=== PATIENT | male | born 1950 | race Caucasian/White ===

== ENCOUNTER → 2023-07-29 | Emergency (ER) | payer OTHER ==
--- OUTSIDE RECORDS SUMMARY | 2023-07-29 11:57 | XMS REPORT | Continuity of Care Document ---
Author Name Unknown Address [address] [facility] [address] [place] [address] [facility] thconnect Address [address] [facility] [address] [place] [address] Care Team Providers Care Mining Manager Name Role Phone Pcp-None Primary Care Physician Unavailab Ingrid Montes Attending Clinician UnavailObie Stephenson Attending Clinician Unavail Zeke Kuo Attending Clinician Unavailable Payers Payer Name Policy Type Policy Number Effective Date Expirati on Date Source Allergies, Adverse Reactions, Alerts Allergy Name Allergy Type Status Severity Reaction(s) Onset Date Inactive Date Treating Clinician Comments Source No Known Drug Allergie s DA Active U 01-06 00:00: 00 MCSETXm Encounters Start Date/Time End Date/Time Encounter Type Admission Type Attending [facility] Facility Care Department Encounter ID Source 2022-04-06 10:10:00 2022-04-06 10:11:00 Outpatient Elective Ingrid PerdomoETXjocelynn MCSETXm [id number] MCSETXm 2022-04-06 10:10:00 2022-04-06 10:10:00 Outpatient Elective Inrgid PerdomoETXjocelynn MCSETXm [id number] MCSETXm 2022-01-06 10:39:00 2022-01-06 17:31:00 Emergency Emergency Obie CollinsXjocelynn MCSETXm [id number] MCSETXm 2022-01-06 10:39:00 2022-01-06 10:39:00 Emergency Emergency Zeke Chu MCSETXm MCSETXm [id number] MCSETXm Results Test Description Test Time Test Comments Results Result Co mments Source PREVIOUS SPECIMEN HEMOLYZED/NOTIFIED ER@[id number] Blood Count Auto Diff 2022-01-06 12:15:00* Test Item Value Reference Range Interpretation Comme nts White Blood Count (test code = WBCT) 8.2 x10 3/uL 4.8-10.8 N Red Blood Count (test code = RBC) 5.09 x10 6/uL 4.60-6.20 N Hemoglobin (test code = HGBT) 17.6 g/dL 14.0-18.0 N Hematocrit (test code = HCTT) 52.9 % 38.0-52.0 H Mean Corpuscular Volume (favian t code = MCV) 103.9 fL 80.0-95.0 H Mean Corpuscular Hemoglobin (test code = MCH) 34.6 pg 26.0-32.0 H Mean Corpuscular HGB Conc (t est code = MCHC) 33.3 g/dL 31.0-36.0 N Red Cell Distribution Width (test code = RDW) 12.5 % 11.5-14.5 N Platelet Count (test code = PLTT) 148 x10 3/uL 140-440 N Mean Platelet Volume (test c ode = MPV) 10.5 fL 7.5-11.2 N Immature Granulocytes % (Aut o) (test code = IMMGRAN%) 0.2 % Neutrophils % (Auto) (test c ode = NE%) 89.0 % Lymphocytes % (Auto) (test c ode = LY%) 3.6 % Monocytes % (Auto) (test cod e = MO%) 3.8 % Eosinophils % (Auto) (test c ode = EO%) 3.3 % Basophils % (Auto) (test cod e = BA%) 0.1 % Immature Granulocytes # (Aut o) (test code = IMMGRAN#) 0.02 x10 3/uL Neutrophils # (Auto) (test c ode = NE#) 7.3 x10 3/uL 2.7-7.3 N Lymphocytes # (Auto) (test c ode = LY#) 0.3 x10 3/uL 0.8-3.5 L Monocytes # (Auto) (test cod e = MO#) 0.3 x10 3/uL 0.3-0.9 N Eosinophils # (Auto) (test c ode = EO#) 0.3 x10 3/uL 0.0-0.3 N Basophils # (Auto) (test cod e = BA#) 0.0 x10 3/uL 0.0-0.1 N nRBC Abs (test code = NRBCA) 0 10>3/mcL nRBC Pct (test code = NRBCP) 0 % Comprehensive Metabolic [id number] 12:15:00* Test Item Value Reference Range Interpretation Comme nts SODIUM (test code = NA) 138 mmol/L 136-145 N Potassium,K (test code = K) 4.3 mmol/L 3.5-5.1 N Chloride (test code = CL) 103 mmol/L 98-107 N Carbon Dioxide (test code = CO2) 30 mmol/L 21-32 N Anion Gap (test code = GAP) 5 mmol/L 7-16 L Blood Urea Nitrogen (test co de = BUN) 16 mg/dL 7-18 N Creatinine (test code = CREATT) 0.8 mg/dL 0.7-1.3 N Creatinine Clr Calc Pharmacy (test code = CRCLPHA) 76.89 mL/min Estimated GFR ( Ameri ca (test code = EGFRAA) > 60 mL/min/1.73m2 Estimated GFR (Non Afr Ameri ca (test code = EGFRNAA) > 60 mL/min/1.73m2 BUN/Creatinine Ratio (test c ode = BCRATIO) 20 Glucose (test code = GLU) 99 mg/dL 74-106 N Calcium (test code = CA) 9.0 mg/dL 8.5-10.1 N Bilirubin,Total (test code = BILIT) 1.4 mg/dL 0.2-1.0 H Aspartate Amino Transferase (test code = AST) 15 IU/L 10-34 N Alanine Aminotransferase (te st code = ALT) 18 IU/L 12-78 N Total Protein (test code = TP) 6.7 g/dL 6.4-8.2 N Albumin Level (test code = ALB) 4.0 g/dL 3.4-5.0 N Globulin (test code = GLOB) 3 Albumin/Globulin Ratio (test code = AGRATIO) 1.3 ratio 1.2-3.0 N Alkaline Phosphatase (test c ode = ALP) 107 IU/L 45-122 N [id number] 12:15:00* Test Item Value Reference Range Interpretation Comme nts Lipase (test code = LIP) 98 IU/L 73-393 N Troponin I High [id number] 12:15:00* Test Item Value Reference Range Interpretation Comme nts Troponin I High Sensitivity (test code = TROPHS) 4.5 ng/L 0-58.9 N [facility] [address] [place], [place] [id number] Patient Name: Franky Ward Medical Record#: [id number] Address: [address] [place] [address] City/State/Zip: [place] [address]: Ingrid Perdomo MD Insurance: Medicare A B /Age/Sex: 1950/71/M [facility] Admit/Reg Date: 04/06/[address]: Jocelynn Corrales Location: [facility]/ PCP: Pcp-Md RUSS Pineda Date of Service: 03/18 06/07 Order (s): BD bone densitometry axial CPT Code: 94829 Report Number: [id number] Reason forExam: [id number] EXAM: DEXA scan with FRAX: INDICATION: 71-year-old male for bone mineral assessment/fracture probability assessment. COMPARISON: None TECHNIQUE: A DEXA study was performed utilizing a Dog[employer] QDR series scanner. The study included assessment of the patient's bone mineral density within the lumbar spine, right hip, and left hip. The area of the lowest bone mineral density was then compared to the mean bone mineral density average of a young adult. The subsequent classification of normal, osteopenia, or osteoporosis was then based on the World Health Organization (WHO) classification system (T-score). A FRAX algorithm was also developed by the WHO. This calculates an osteopenic patient's 10 year fracture probability as a percent risk. The fracture tool incorporates the patient's bone mineral density with 11 potential clinical risk factors for osteoporosis. A 10 year fracture risk of greaterthan 20% for an osteoporotic fracture or greater than 3% for a hip fracture, is a indication for intervention in post menopausal women and men over the age of 50. FINDINGS: Based on the lowest bone mineral density located within the right femur , the patient hasa WHO classification of osteoporosis. The patient's 10 year fracture risk for an osteoporotic fracture is 13.3 % and for a hip fracture is 7.6 %. IMPRESSION: 1. WHO classification: Osteoporosis 2. Fracture risk:High Please see the computer-generated report Dictated By: Nima Nelson MD 04/06/22 1143 Signed By: Nima Nelson MD 04/06/22 1151 TD/TT: 04/06/22 1143 Tech: [id number] cc: MALENA; PCPNO* Ingrid Perdomo MD; PcpMd Palma MDX [facility] [address] [address] Patient Name: Franky Ward Medical Record#: [id number] Address: [address] [place] [address] Account#: [id number] City/State/Zip: [place] [address]: Zeke Chu MD Insurance: Medicare A B /Age/Sex: 1950/71/M [facility] Admit/Reg Date: 01/06/[address]: Heri chairez NP Location: [facility]/ PCP: PcpMd RUSS Waldrop Date of Service: 01/06/22 Order (s): XR abdomen 2V CPT Code: 59710 Report Number: [id number] Reason for Exam: abd pain, vomiting X-ray abdomen 2 views HISTORY: Abdominal pain, emesis COMPARISON: None available TECHNIQUE: Supine and upright views provided. FINDINGS: Included lung bases are clear. No free air identified underlying the hemidiaphragms. Distended stomach noted with air-fluid level. No evidence of bowel obstruction. No mass effect. Punctate calcification is seen projecting over the right kidney. Psoas margins are profiled. Scoliotic and degenerative changes of the spine identified. IMPRESSION: 1. Distended stomach with air-fluid level; no bowel obstruction. Correlate clinically to exclude any symptoms of gastric outlet obstruction. 2. Questionable punctate right nephrolithiasis versus overlying ca lcification. Dictated By: Cosme Buchanan MD 01/06/221433 Signed By: Cosme Buchanan MD 01/06/22 1442 TD/TT: 01/06/22 1434 Tech: [facility] cc: [id number]; PCPNO* Heri Montemayor, HOGSHEAD WEIGHER; Pcp-Md RUSS Pineda Notes Date/Time Note Provider Source 2022-01-06 11:11:00 [id number]:11:[address] [address] Emergency Department Document Signed Patient: Franky Ward Medical Record#: [id number] : 1950 Acct:[id number] Age/Sex: 71 / M Admit/Reg Date: 01/06/22 Loc: [facility] Room: Report Number: [id number]: Obie Collins DO <Obie Collins - Last Filed: 01/06/22 17:24> Abdominal Pain HPI - General Chief Complaint: Abdominal Pain Stated Complaint: abd pain - vomiting Primary Care Provider: Pcp-Md Miriam - History of Present Illness HPI narrative: I saw and evaluated the patient. I agree with the findings and plan of care as documented in the HOGSHEAD WEIGHER's note. The patient presented with nausea and vomiting that began today. On physical exam the patient is a regular rate and rhythm without murmur, lungs are clear to auscultation bilaterally. Patient's neurological status is at baseline. Patient symptoms have improved substantially. - Related Data Previous Rx's Medication Instructions Recorded famotidine 20 mg tablet 20 mg PO BID #14 tabs 01/06/22 ondansetron 4 mg disintegrating 4 mg PO Q8H PRN Nausea And 01/06/22 tablet Vomiting #9 tabs Allergies Allergy/AdvReac Type Severity Reaction Status Date / Time No Known Drug Allergies Allergy Verified 01/06/22 11:09 Review of Systems ROS: Constitutional: [No fevers, chills, sweats, weight loss] Eye: [No visual problems] ENMT: [No ear pain, nasal congestion, sore throat] Respiratory: [No shortness of breath, cough] Cardiovascular: [No Chest pain, palpitations, syncope, swelling in legs, dyspnea on exertion] Gastrointestinal: [Positive nausea vomiting denies diarrhea, abdominal pain, no difficulty swallowing] Genitourinary: [No hematuria, no dysuria, no hesitancy, no frequency, no incontinence] Musculoskeletal: [No back pain, neck pain, joint pain, muscle pain, decreased range of motion] Integumentary: [No rash, pruritus, abrasions, no skin ulcers] Neurologic: [No focal weakness, no paresthesia, no headaches, numbness or tingling, no seizures or tremors] Psychiatric: [Normal memory, normal mood] All other systems reviewed are negative or normal. Physical Exam Physical Exam: CONSTITUTIONAL: _well appearing in no acute distress SKIN: _Warm, dry, and intact without rash EYES: _extraocular movements are grossly intact, clear conjunctiva HENT: _Normocephalic, atraumatic, moist mucus membranes NECK: _no obvious swelling, normal range of motion PULMONARY: _normal chest rise and fall, no respiratory distress or stridor CARDIOVASCULAR: _regular rate, distal extremities are warm and well perfused GASTROINTESTINAL: _nondistended, non-tender GENITOURINARY: _deferred NEUROLOGIC: _normal speech, moves all extremities MUSCULOSKELETAL: _no gross deformities, atraumatic PSYCHIATRIC: _normal mood and affect Results/Orders - Results and Orders Result diagrams: 01/06/22 12:15 01/06/22 12:15 ED Provider EKG Interpretation: EKG interpreted by me. Normal sinus rhythm with rate of 67. OK intervals appear to be within normal limits. QRS intervals appear to be within normal limits. There are no ST segment changes. There are no T wave inversions. ED Provider Radiology Interpretation: Abdominal x-ray interpreted by me demonstrates air-fluid levels in the stomach. <Heri Montemayor - Last Filed: 01/06/22 17:29> Abdominal Pain HPI - General Nursing note reviewed: Yes Source: patient Mode of arrival: ambulatory Limitations: no limitations Primary Care Provider: Pcp-None,Md - History of Present Illness HPI narrative: Patient reports epigastric abdominal pain and 1 episode of vomiting at 03:00 today. He states I vomited up bile. No history of cholecystitis. Patient states he ate a few bites of some barbecue yesterday that t asted bad. Patient states he has a cardiac history with an angiogram in the past. After he signed in emergency department, he states he had a sudden onset of chest/epigastric pain w tereseh feels like it did when I had an angiogram." EKG and labs ordered. Review of Systems ROS: As noted in HPI or below. Constitutional: No fevers, chills Eye: No visual problems ENMT: No ear pain, no nasal congestion, no sore throat Neck: No acute neck injury. Respiratory: No cough. No shortness of breath. Cardiovascular: As in HPI. No palpitations or syncope. Gastrointestinal: As in HPI. Genitourinary: No hematuria, no dysuria, no incontinence Back: No acute back injury. Musculoskeletal: No injury, no joint pain, muscle pain, decreased range of motion. Integumentary: No rash, pruritus, abrasions, no skin ulcers Neurologic: No weakness, no headache. No seizures or tremors. Psychiatric: Normal memory, normal mood. Physical Exam Triage Vital Signs: Temperature 36.9 C 01/06/22 11:00 Temperature Source Oral 01/06/22 11:00 Pulse Rate 72 01/06/22 11:00 Respiratory Rate 20 01/06/22 11:00 Blood Pressure 172/72 H 01/06/22 11:00 Blood Pressure Mean 105 01/06/22 11:00 O2 Sat by Pulse Oximetry 100 01/06/22 11:00 Oxygen Delivery Method 01/06/22 11:00 Pain Intensity 6 01/06/22 11:00 Physical Exam: General: [Well groomed. No acute distress.] BMI [ ]. Eye: [EOMI, conjunctiva normal. No periorbital swelling or injury noted.] HENT: [Normocephalic, normal hearing.] [No injury or swelling noted.] Neck: [No tracheal deviation. No stridor. Range of motion normal.] Lungs: [No respiratory distress.] [Clear to auscultation throughout all lung wiggins. No wheezes, no rales, no rhonchi.] [O2 sat on room air is _%.] [Interpretation: Normal.] CV: Heart rate 67. [Regular rhythm, no murmurs.] Abdomen: Soft, epigastric tenderness. Musculoskeletal: [No injury noted.] [Normal range of motion and strength to all extremities.] [No tenderness or swelling. ] Back: [Normal range of motion.] Skin: [Warm, dry, normal for skin coloration. No ecchymosis, no rashes or lesions.] Neurologic: [Alert and oriented X4, no motor deficit, no sensory deficit.] [Normal gait.] Psychiatric: [Cooperative, appropriate mood, normal affect. ] Results/Orders - Results and Orders Result diagrams: 01/06/22 12:15 01/06/22 12:15 Lab Testing Results 01/06/22 12:15: WBC 8.2, RBC 5.09, Hgb 17.6, Hct 52.9 H, MCV 103.9 H, MCH 34.6 H, MCHC 33.3, RDW 12.5, Plt Count 148, MPV 10.5, Immature Gran % (Auto) 0.2, Neut % (Auto) 89.0, Lymph % (Auto) 3.6, Mcnairy % (Auto) 3.8, Eos % (Auto) 3.3, Baso % (Auto) 0.1, Neut # (Auto) 7.3, Lymph # (Auto) 0.3 L, Mcnairy # (Auto) 0.3, Eos # (Auto) 0.3, Baso # (Auto) 0.0, Immature Gran # (Auto) 0.02, Absolute Nucleated RBC 0, Nucleated RBC % (auto) 0 01/06/22 12:15: Sodium 138, Potassium 4.3, Chloride 103, Carbon Dioxide 30, Anion Gap 5 L, BUN 16, Creatinine 0.8, Estimated Creat Clear 76.89, Est GFR ( Amer) > 60, Est GFR (Non-Af Amer) > 60, BUN/Creatinine Ratio 20, Glucose 99, Calcium 9.0, Total Bilirubin 1.4 H, AST 15, ALT 18, Alkaline Phosphatase 107, Total Protein 6.7, Albumin 4.0, Globulin 3, Albumin/Globulin Ratio 1.3, Lipase 98 01/06/22 12:15: Troponin I High Sens 4.5 01/06/22 15:04: Troponin I High Sens Cancelled 01/06/22 16:41: Troponin I High Sens 4.0 Medications Ordered: Discontinued Medications Al Hydrox/Mg Hydrox/Simethicone (Aluminum/Magnesium/Simeth 30 Ml Udl) 30 ml PO STAT STA Stop: 01/06/22 11:11 Last Admin: 01/06/22 11:50 Dose: 30 ml Documented By: MARYCRUZ Famotidine (Famotidine 20 Mg Tablet) 20 mg PO ONCE ONE Stop: 01/06/22 11:11 Last Admin: 01/06/22 11:50 Dose: 20 mg Documented By: MARYCRUZ Lidocaine HCl (Lidocaine 2% Visc Soln 15 Ml Udl) 15 ml PO STAT STA Stop: 01/06/22 11:12 Last Admin: 01/06/22 11:50 Dose: 15 ml Documented By: MARYCRUZ Ondansetron HCl (Ondansetron 4 Mg/2 Ml Inj) 4 mg IV ONCE ONE Stop: 01/06/22 13:43 Last Admin: 01/06/22 14:47 Dose: 4 mg Documented By: MARYCRUZ EKG Orders: EKG Orders 01/06/22 11:09 EKG ED Electrocardiogram Stat ED Provider EKG Interpretation: EKG was done at 11:04. Heart rate 67. Sinus rhythm. No ectopy. No significant acute ST abnormalities. This EKG was also interpreted by Dr. Chu, ED attending Radiology Orders: Radiology Orders 01/06/22 13:44 XR abdomen 2V Stat MDM/COURSE Vital Signs Temperature 36.9 C 01/06/22 11:00 Pulse Rate 72 01/06/22 11:00 Respiratory Rate 20 01/06/22 11:00 Blood Pressure 172/72 H 01/06/22 11:00 O2 Sat by Pulse Oximetry 100 01/06/22 11:00 Temperature 36.9 C 01/06/22 11:00 Pulse Rate 72 01/06/22 11:00 Respiratory Rate 20 01/06/22 11:00 Blood Pressure 172/72 H 01/06/22 11:00 O2 Sat by Pulse Oximetry 100 01/06/22 11:00 Clinical Course: 01/06/22 13:51 Patient reports his epigastric pain has improved after the GI cocktail in the famotidine. He will be given Zofran 4 mg IV to help with the nausea vomiting. Two view x-ray of the abdomen will be obtained. Based on lab work and presentation, this appears to be more of a food poisoning versus gastroenteritis. 01/06/22 16:13 Awaiting repeat troponin results. I called lab, and they stated that the specimen was hemolyzed, and that they call the main emergency department to let them know for redraw. None of this was communicated to the nurse working with the patient. Patient will be redrawn. - [facility] Medical Decision Making Narrative: 01/06/22 17:20 Differential diagnoses include: Esophagitis, gastroenteritis, food poisoning, atypical chest pain, mi. I reviewed and agree with the nurse's notes. Vital signs reviewed. I personally visualized radiological images. Distended stomach with air-fluid level without bowel obstruction. Labs reviewed. No leukocytosis. Hematocrit 52.9, negative initial and 4 hour troponin. Bilirubin 1.4, otherwise no significant findings on complete metabolic panel. This patient was co-managed with and Dr. Collins, ED attendings. Patient states he is feeling much better after receiving medications. The results of pertinent diagnostic studies and exam findings were discussed with the patient and/orfamily. The patients provisional diagnosis and plan of care were discussed. The patient and/or present family expressed understanding of the diagnosis and plan. Written instructions and appropriate follow-up information provided. The risks of medications administered and/or prescribed were discussed with the patient and/or family present. The patient understands their need and responsibility to obtain additional follow-up as instructed. Discharge Plan - Discharge Clinical Impression: Gastroenteritis Disposition: Home or Self-Care Condition: Good Instructions: ED Gastroenteritis Vs Food Poison Care Plan Goals: Return to the emergency department for worsening pain and nausea/vomiting. Prescriptions: New famotidine 20 mg tablet 20 mg PO BID Qty: 14 RF: 0 Transmission Status: Received by [facility] #[id number] ondansetron 4 mg tablet,disintegrating 4 mg PO Q8H PRN (Reason: Nausea And Vomiting) Qty: 9 RF: 0 Transmission Status: Received by [facility] #[id number] Referrals: Pcp-Miriam,MD Russ [Primary Care Provider] - Print Language: Salvadorean Dictated By: Heri Montemayor NP Signed By: Heri Montemayor NP 01/06/22 5110 Zeke Chu MD 01/08/22 0316 Obie Collins DO 01/07/22 0316 DD/ 1111 TD/TT: 01/06/22 1111 Towel Sorter: [id number] cc: PCPNO* Pcp-None,Md MD CUETO Physician [id number] MontemayorWfizh[id number]:11:00 REBECAAVAvailable for patient [id number]:18:16 [facility]
[2023-07-29 13:21] LABS: Absolute Basophils 0.1 K/uL (0-0.5); Absolute Eosinophils 1.3 K/uL (0-0.5); Absolute Lymphocytes (CBC) 1.5 K/uL (0.7-4.9); Absolute Monocytes 0.9 K/uL (0.1-1.3); Absolute Neutrophil 5.5 K/uL (1.8-8.0); Basophils % 0.6 % (0-1.3); Eosinophils % 14.2 % (0-4.4); Lymphocytes % 16.3 % (15.3-44.8); MCV 99.7 fL (80-100); MPV 9.1 fL (7.6-11.3); Monocytes % 9.3 % (3.3-12.3); Neutrophils % 59.6 % (41.7-73.7); Platelets 195 thou/uL (152-406); RBC Red Blood Cell Count 4.71 M/uL (4.33-5.43); Red Cell Distribution Width 13.5 % (12.1-15.2)
[2023-07-29 15:07] LABS: ALT/SGPT 23 U/L (16-61); AST/SGOT 17 U/L (15-37); Albumin 3.9 g/dL (3.4-5.0); Albumin/Globulin Ratio 1.6 (1.1-1.8); Alkaline Phosphatase 107 U/L (45-117); Anion Gap 4.9 mEq/L (5.0-15.0); BUN Blood Urea Nitrogen 16 mg/dL (7-18); Bicarbonate 30 mEq/L (21-32); Bilirubin Total 0.4 mg/dL (0.2-1.0); Globulin 2.5 g/dL (2.3-3.5); Glomerular Filtration Rate 67 ml/min (=/>90); Glucose Level 98 mg/dL (74-106); Potassium 3.9 mEq/L (3.5-5.1); Protein, Total 6.4 g/dL (6.4-8.2); Sodium Level 139 mEq/L (136-145)
[2023-07-29 15:20] LABS: C-Reactive Protein < 2.90 mg/L (<3.00)
--- NOTE | 2023-07-29 15:39 | EDPHYS ---
Physician Documentation [facility] Name: Alcides Cruz Age: 72 yrs Sex: Male : 1950 Arrival Date: 07/29/2023 Time: 11:51 Bed 9 Private MD: Angel Richards ED Physician Gomez Huynh HPI: 07/28 17:32 This 72 yrs old Male presents to ER via Ambulatory with complaints of Rash, Hand rt Swelling, arm swelling. 17:32 Patient presents to the ED with whole body rash. Reports of blistering. Patient has had rt this for many months, reports that he has seen a arts education teacher a few times and was tried antibiotics, topical antifungals, topical steroids. States that when he had this before, was improved with oral steroids. States that he has another appoint with dermatology in August. Denies fever, chills, acute complaints, symptoms are moderate in severity, no other aggravating or elevating factors.. Historical: - Allergies: 12:46 NKDA; iw - PMHx: 12:46 Arthritis; CAD; GERD; Hypertension; Myocardial infarction; TURP; iw - Immunization history:: Adult Immunizations unknown. - Social history:: Smoking status: Patient reports the use of cigarette tobacco products, smokes one pack cigarettes per day. - Family history:: not pertinent. ROS: 17:32 Constitutional: Negative for fever, chills, and weight loss, Cardiovascular: Negative rt for chest pain, palpitations, and edema, Respiratory: Negative for shortness of breath, cough, wheezing, and pleuritic chest pain, Abdomen/GI: Negative for abdominal pain, nausea, vomiting, diarrhea, and constipation, Neuro: Negative for headache, weakness, numbness, tingling, and seizure, 17:32 Skin: Positive for Rash, blistering, Exam: 17:32 Constitutional: This is a well developed, well nourished patient who is awake, alert, rt and in no acute distress. Head/Face: Normocephalic, atraumatic. Chest/axilla: Normal chest wall appearance and motion. Nontender with no deformity. No lesions are appreciated. Cardiovascular: Regular rate and rhythm with a normal S1 and S2. No gallops, murmurs, or rubs. Normal PMI, no JVD. No pulse deficits. Respiratory: Lungs have equal breath sounds bilaterally, clear to auscultation and percussion. No rales, rhonchi or wheezes noted. No increased work of breathing, no retractions or nasal flaring. Abdomen/GI: Soft, non-tender, with normal bowel sounds. No distension or tympany. No guarding or rebound. No evidence of tenderness throughout. 17:32 Skin: Nonblanchable, erythematous rash throughout most of the body, there are some blistering noted.. Vital Signs: 12:44 BP 169 / 77; Pulse 61; Resp 16; Temp 98.2; Pulse Ox 98% on R/A; Weight 83.91 kg; Height iw 5 ft. 7 in. ; 15:30 BP 158 / 80; Pulse 65; Resp 15; Pulse Ox 97% ; ko1 12:44 Body Mass Index 28.97 (83.91 kg, 170.18 cm) iw MDM: 12:46 Patient medically screened. rt 17:32 Differential diagnosis: Infection, bullous pemphigoid, nonspecific rash. Data reviewed: rt vital signs, nurses notes, lab test result(s). Consideration of Admission/Observation Escalation of care including admission/observation considered. 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 Will start patient on steroids. Labs including CRP are negative. At this time, I see no indications for admission at the hospital, patient is stable to follow-up with his arts education teacher as an outpatient. I considered the following discharge prescriptions or medication management in the emergency department Medications were administered in the Emergency Department. See MAR. Care significantly affected by the following chronic conditions: Hypertension. Counseling: I had a detailed discussion with the patient and/or guardian regarding the historical points, exam findings, and any diagnostic results supporting the discharge/admit diagnosis, lab results, the need for outpatient follow up. 07/28 12:59 Order name: CBC with Diff; Complete Time: 15:28 rt 07/28 12:59 Order name: CMP; Complete Time: 15:28 rt 07/28 12:59 Order name: CRP; Complete Time: 15:28 rt 07/28 13:25 Order name: Labs - recollect needed: green top; Complete Time: 14:40 bc6 Administered Medications: No medications were administered Disposition Summary: 07/29/23 15:39 Discharge Ordered Notes: Location: Home rt Problem: an ongoing problem rt Symptoms: are unchanged rt Condition: Stable rt Diagnosis - Rash and other nonspecific skin eruption rt Followup: rt - With: Private Physician - When: 5 - 6 days - Reason: Discharge Instructions: - Discharge Summary Sheet rt - Rash, Adult rt Forms: - Medication Reconciliation Form rt - Thank You Letter rt - Antibiotic Education rt - Prescription Opioid Use rt - Patient Portal Instructions rt - Leadership Thank You Letter rt Prescriptions: - Clindamycin HCl 300 mg Oral Capsule - take 1 capsule ORAL route every 6 hours for 10 days; 40 capsule; Refills: 0, rt Product Selection Permitted - Tramadol 50 mg Oral tablet - take 1 tablet ORAL route every 8 hours as needed; 18 tablet; Refills: 0, rt Product Selection Permitted - Prednisone 20 mg Oral Tablet - take 2 tablets ORAL route once daily for 5 days; 10 tablet; Refills: 0, Product rt Selection Permitted Signatures: Dispatcher [employer] Zo Tran RN RN iw Akilah Espinoza RN RN ko1 Gomez Huynh MD MD rt Cindi Giordano 6
--- NOTE | 2023-07-29 15:39 | ER ---
Nurse's Notes [facility] Name: Alcides Cruz Age: 72 yrs Sex: Male : 1950 Arrival Date: 07/29/2023 Time: 11:51 Bed 9 Private MD: Angel Richards Diagnosis: Rash and other nonspecific skin eruption Presentation: 07/28 12:44 Chief complaint: Patient states: rash, redness swelling to left arm, chest and back for iw months, it got worse last night, has been seen by dermatologists but nothing helps. Coronavirus screen: At this time, the client does not indicate any symptoms associated with coronavirus-19. Ebola Screen: No symptoms or risks identified at this time. Initial Sepsis Screen: Does the patient meet any 2 criteria? No. Patient's initial sepsis screen is negative. Does the patient have a suspected source of infection? No. Patient's initial sepsis screen is negative. Risk Assessment: Do you want to hurt yourself or someone else? Patient reports no desire to harm self or others. Onset of symptoms. 12:44 Method Of Arrival: Ambulatory iw 12:44 Acuity: ARTEMIO 3 iw Triage Assessment: 13:00 General: Appears in no apparent distress. Behavior is calm, cooperative. Pain: iw Complains of pain in left arm. Neuro: Level of Consciousness is awake, alert, obeys commands, Oriented to person, place, time, situation. Derm: Rash noted that is red, on back, chest and left arm. Historical: - Allergies: 12:46 NKDA; iw - PMHx: 12:46 Arthritis; CAD; GERD; Hypertension; Myocardial infarction; TURP; iw - Immunization history:: Adult Immunizations unknown. - Social history:: Smoking status: Patient reports the use of cigarette tobacco products, smokes one pack cigarettes per day. - Family history:: not pertinent. Screenin:41 [facility] ED Fall Risk Assessment (Adult) History of falling in the last 3 months, ko1 including since admission No falls in past 3 months (0 pts) Confusion or Disorientation No (0 pts) Intoxicated or Sedated No (0 pts) Impaired Gait No (0 pts) Mobility Assist Device Used No (0 pt) Altered Elimination No (0 pt) Score/Fall Risk Level 0 - 2 = Low Risk Oriented to surroundings, Maintained a safe environment, Educated pt \T\ family on fall prevention, incl call for assistance when getting out of bed, Assessed \T\ reinforced patient's understanding of fall precautions, Provided non-skid footwear, Hourly rounding (assess needs \T\ fall precautionary measures) done, Used ambulatory aids as needed (educated on \T\ assisted with), Used gait belt as appropriate. Abuse screen: Denies threats or abuse. Denies injuries from another. Nutritional screening: No deficits noted. Tuberculosis screening: No symptoms or risk factors identified. Assessment: 14:43 General: Appears in no apparent distress. Behavior is calm, cooperative, appropriate ko1 for age. Pain: Denies pain. Neuro: No deficits noted. Cardiovascular: No deficits noted. Respiratory: No deficits noted. GI: No deficits noted. : No deficits noted. EENT: No deficits noted. Derm: Rash noted that is macular, itchy, red, raised, on chest and back and left arm. Musculoskeletal: No deficits noted. Vital Signs: 12:44 BP 169 / 77; Pulse 61; Resp 16; Temp 98.2; Pulse Ox 98% on R/A; Weight 83.91 kg; Height iw 5 ft. 7 in. ; 15:30 BP 158 / 80; Pulse 65; Resp 15; Pulse Ox 97% ; ko1 12:44 Body Mass Index 28.97 (83.91 kg, 170.18 cm) iw ED Course: 11:57 Patient arrived in ED. mr 11:57 Angel Richards MD is Private Physician. mr 12:04 Gomez Huynh MD is Attending Physician. rt 12:45 Triage completed. iw 13:16 Initial lab(s) drawn, by me, sent to lab. Inserted saline lock: 20 gauge in right iw antecubital area, using aseptic technique. Blood collected. 13:16 CRP Sent. iw 13:16 CMP Sent. iw 13:16 CBC with Diff Sent. iw 13:36 Arm band placed on. iw 14:35 Akilah Espinoza, OZZY is Primary Nurse. ko1 14:41 No provider procedures requiring assistance completed. Lab(s) recollected, by me, sent ko1 to lab. 14:41 Patient has correct armband on for positive identification. Bed in low position. Call ko1 light in reach. Side rails up X 1. Pulse ox on. NIBP on. Door closed. Noise minimized. Warm blanket given. Pillow given. 15:30 Provided Education on: labs. ko1 15:48 IV discontinued, intact, bleeding controlled, No redness/swelling at site. Pressure ko1 dressing applied. Administered Medications: No medications were administered Medication: 14:41 VIS not applicable for this client. ko1 Outcome: 15:39 Discharge ordered by . rt 15:48 Discharged to home ambulatory, ko1 15:48 Condition: stable 15:48 Discharge instructions given to patient, Instructed on discharge instructions, follow up and referral plans. medication usage, Demonstrated understanding of instructions, follow-up care, medications, Prescriptions given X 3, 15:52 Patient left the ED. ko1 Signatures: Inez Leach, Reg Reg mr Zo Morel, RN RN iw Akilah Espinoza, OZZY RN ko1 Gomez Huynh MD MD rt
[2023-07-29 16:43] VITALS: BP 158/80; TEMP 98.2; O2SAT 97
== END ==
LOC: ER 11:51
DX: R21 Rash and other nonspecific skin eruption (principal); F17.210 Nicotine dependence, cigarettes, uncomplicated
CPT/HCPCS: 36415; 80053; 85025; 86140; 99284

== ENCOUNTER 2025-02-11 01:36 | Emergency (ER) | payer OTHER ==
--- OUTSIDE RECORDS SUMMARY | 2025-02-11 01:41 | XMS REPORT | Continuity of Care Document ---
Author Name Unknown Address [address] [facility] [address] [place] [address] [facility] Address [address] [facility] [address] [place] [address] Care Team Providers Care Research And Development Director Name Role Phone Pcp-None Primary Care Physician Unavailab MIGUEL Lee Attending Clinician Unavailable Sebastian Son MD Attending Clinician [phone] SEBASTIAN SON Attending Clinician Unavailabl e [facility] Attending Clinician Unavailable Doctor Unassigned, [place] Attending Clinician U Eugenio Batres RPH Attending Clinician [phone]- [phone] Winifred August MD Attending Clinician [phone] KENDRA MAYS Attending Clinician Unavailab KENDRA Chopra Attending Clinician Unavailab Kendra Chopra DO Attending Clinician + [phone] Vin Quintanilla PA-C Attending Clinician [phone] Sebastian Son MD Attending Clinician [phone]- [phone] Vin Quintanilla PA-C Attending Clinician [phone] VIN QUINTANILLA Attending Clinician Unavailable Carin Bates MD Attending Clinician [phone] Marck Jordan MD Attending Clinician [phone] [facility] Attending Clinician Unavailable Ingrid Perdomo Attending Clinician UnavailObie Stephenson Attending Clinician Unavail Zeke Kuo Attending Clinician Unavailable Payers Payer Name Policy Type Policy Number Effective Date Expirati on Date Source Problems Condition Name Condition Details Condition Category Status Onset Date Resolution Date Last Treatment Date Treating Clinician Comments Source Post-op pain Post-op pain Disease Active 2014-05 00:00: 00 [facility] Allergies, Adverse Reactions, Alerts Allergy Name Allergy Type Status Severity Reaction(s) Onset Date Inactive Date Treating Clinician Comments Source DOXYCYCL INE DRUG INGREDI Active N/V 08-04 00:00: 00 [facility] Doxycycl ine Propensi ty to adverse reaction s Active Nausea and/or Vomiting 08-04 00:00: 00 [facility] No Known Drug Allergie s DA Active U 01-06 00:00: 00 [facility] Morphine Propensi ty to adverse reaction s to drug Active Other - See comments 2014-05 00:00: 00 Pt states he does ok if given Morphine slowly. Had a reaction in the past when Morphine was given "too fast." States he was jerking/t witching. [facility] MORPHINE DRUG INGREDI Active Low Other-Cmnt 2014-05 00:00: 00 [facility] Social History Social Habit Start Date Stop Date Quantity Comments Source History of tobacco use Cigarette Smoker [facility] Alcoholic beverage intake 2024-02-25 00:00:00 2024-02-25 00:00:00 6 /d [facility] Tobacco use and exposure 2023-10-05 00:00:00 2023-10-05 00:00:00 Smokeless tobacco non-user [facility] Alcohol intake 2023-08-05 00:00:00 2023-08-05 00:00:00 6 /d [facility] History of Social function 2023-08-05 00:00:00 2023-08-05 00:00:[address] [facility] Cigarettes smoked current (pack per day) - Reported 2015-04-02 00:00:00 2015-04-02 00:00:[address] [facility] Sex assigned at 1950 00:00:00 1950 00:00:[address] [facility] Smoking Status Start Date Stop Date Source Smokes tobacco daily 2023-10-05 00:00:[address] [facility] Medications Ordered Medication Name Filled Medication Name Start Date Stop Date Current Medication? Ordering Clinician Indication Dosage Frequency Signature (SIG) Comments Components Source cephALEXin 500 mg capsule 05-19 00:00: 00 05-30 05:59 :00 No 500mg Take 1 capsule by mouth in the morning and 1 capsule in the evening. Do all this for 10 days. [facility] predniSONE 10 mg tablet 2023-05 00:00: 00 Yes [id number] 5mg Take 0.5 tablets by mouth in the morning. [facility] predniSONE 20 mg tablet 02-06 00:00: 00 Yes [id number] Take 3 tabs (60 mg) daily for 1 week, then 2 tabs (40 mg) daily for 2 weeks, then 1 tab (20 mg) daily for 2 weeks [facility] dupilumab (DUPIXENT PEN) 300 mg/2 mL PnIj 01-27 00:00: 00 Yes [id number] 300mg inject 1 Pen under the skin weekly. [facility] predniSONE 10 mg tablet 01-27 00:00: 00 02-24 00:00 :00 No [id number] 10mg Take 1 tablet by mouth in the morning. [facility] triamcinolo ne acetonide 0.1 % cream 12-30 00:00: 00 Yes [id number] Apply to area(s) 2 (two) times daily. [facility] mupirocin 2 % ointment 12-30 00:00: 00 Yes [id number] Apply to area(s) 2 (two) times daily. [facility] predniSONE 20 mg tablet 12-30 00:00: 00 01-30 04:59 :00 No [id number] 20mg Take 1 tablet by mouth in the morning for 30 days. [facility] dupilumab (DUPIXENT PEN) 300 mg/2 mL PnIj 12-30 00:00: 00 01-27 00:00 :00 No [id number] 300mg inject 1 Pen under the skin weekly. Starting on day 15. [facility] cephALEXin 500 mg capsule 806 00:00: 00 12-28 04:59 :00 No [id number] 500mg Take 1 capsule by mouth in the morning and 1 capsule in the evening. Do all this for 7 days. [facility] ca acetate-alu m sulfate (ASTRINGENT ) topical packet 12-09 00:00: 00 Yes [id number] 1{packe t} Apply 1 Packet to area(s) in the morning and 1 Packet in the evening. [facility] methotrexat e 2.5 mg tablet 12-09 00:00: 00 Yes [id number] 10mg Take 4 tablets by mouth weekly [facility] foLIC acid 1 mg tablet 12-09 00:00: 00 Yes [id number] 1mg Take 1 tablet by mouth in the morning. [facility] mupirocin 2 % ointment 12-09 00:00: 00 12-30 00:00 :00 No [id number] Apply to area(s) 2 (two) times daily. [facility] dupilumab (DUPIXENT PEN) PnIj 600 mg 10-04 21:30: 00 10-04 21:40 :00 No [id number] 600mg 600 mg, Subcutaneo us, ONCE, 1 dose, On Wed10/05/23 at 1645, Routine [facility] predniSONE 20 mg tablet 08-04 00:00: 00 Yes [id number] Take 3 tabs (60 mg) daily for 1 week, then 2 tabs (40 mg) daily for 2 weeks, then 1 tab (20 mg) daily for 2 weeks [facility] triamcinolo ne acetonide 0.1 % cream 08-04 00:00: 00 12-30 00:00 :00 No [id number] Apply to area(s) 2 (two) times daily. [facility] dupilumab (DUPIXENT PEN) 300 mg/2 mL Ij 08-04 00:00: 00 12-30 00:00 :00 No [id number] 300mg inject 1 Pen under the skin every 2 (two) weeks. Starting on day 15. [facility] dupilumab (DUPIXENT PEN) 300 mg/2 mL Ij 08-04 00:00: 00 09-02 04:59 :00 No [id number] 600mg inject 2 Pens under the skin once now for 1 dose. On day 1. [facility] aspirin 81 mg EC tablet 01-19 14:36: 40 Yes 81mg Take 81 mg by mouth daily. [facility] omeprazole (PRILOSEC) 40 mg capsule 01-19 14:36: 40 Yes 40mg Take 40 mg by mouth daily. [facility] metoprolol succinate XL (TOPROL XL) 50 mg 24 hr tablet 01-19 14:36: 40 Yes 50mg Take 50 mg by mouth daily. [facility] vitamin C (VITAMIN C) 100 mg tablet 01-19 14:36: 40 Yes 100mg Take 100 mg by mouth daily. [facility] ergocalcife rol, vitamin D2, (VITAMIN D ORAL) 01-19 14:36: 40 Yes Take by mouth. [facility] vitamin B-12 (VITAMIN B-12) 100 mcg tablet 01-19 14:36: 40 Yes 50ug Take 50 mcg by mouth daily. [facility] Vital Signs Vital Name Observation Time Observation Value Comments S junior Systolic blood pressure 2023-12-22 19:53:04 149 mm[Hg] [facility] Diastolic blood pressure 2023-12-22 19:53:04 84 mm[Hg] [facility] Heart rate 2023-12-22 19:53:04 50 /[facility] Body temperature 2023-12-22 19:53:[address] [facility] Respiratory rate 2023-12-22 19:53:04 18 /min [facility] Oxygen saturation in Arterial blood by Pulse oximetry 2023-12-22 19:53:04 96 /min [place] [facility] Body height 2023-12-22 18:45:00 170.2 cm [facility] Body weight 2023-12-22 18:45:00 97.523 kg [facility] BMI 2023-12-22 18:45:00 33.67 kg/m2 [facility] Body weight 2023-10-05 20:41:00 97.523 kg [facility] BMI 2023-10-05 20:41:00 33.67 kg/m2 [facility] Procedures Procedure Date / Time Performed Performing Clinician Source VITAMIN B12, LEVEL 2024-02-25 15:45:00 Sarika Harden [facility] FOLATE 2024-02-25 15:45:00 Sarika Harden [facility] COMP. METABOLIC PANEL ([id number]) 2024-02-25 15:45:[address] [facility] CBC WITH DIFF 2024-02-25 15:45:00 Sarika Harden [facility] VITAMIN D, 25-OH 2024-02-25 15:45:[facility] 2024-01-28 15:24:00 Winifred August [facility] VITAMIN B12, LEVEL 2023-08-05 21:16:[address] [facility] FOLATE 2023-08-05 21:16:00 Sebastian Son [facility] COMP. METABOLIC PANEL ([id number]) 2023-08-05 21:16:[address] [facility] CBC WITH DIFF 2023-08-05 21:16:00 Carin Bates [facility] HEPATITIS B SURFACE ANTIBODY 2023-08-05 21:16:[address] [facility] HEPATITIS B SURFACE ANTIGEN 2023-08-05 21:16:[address] [facility] HCV ANTIBODY 2023-08-05 [facility]:16[facility] (IGM & IGG) 2023-08-05 21:16:[address] [facility] QUANTIFERON-TB ASSAY 2023-08-05 21:16:[address] [facility] HIV 1/2 AG-AB WITH REFLEX 2023-08-05 21:16:[address] [facility] WOUND CULTURE 2023-08-05 21:07:00 Carin Bates [facility] DERMATOPATHOLOGY TISSUE EXAM 2023-08-05 00:00:[address] [facility] Encounters Start Date/Time End Date/Time Encounter Type Admission Type Attending [facility] Care Facility Care Department Encounter ID Source 2025-01-26 00:00:00 2025-01-26 15:20:39 Telephone Sebastian Son [facility] 1.0.114 350.1.13.10 4.2.7.2.686 [id number] [facility] 2025-01-22 00:00:00 2025-01-23 15:00:35 Telephone Sebastian Son [facility] 1..114 350.1.13.10 4.2.7.2.686 [id number] [facility] 2024-11-07 00:00:00 2024-11-09 10:56:51 Telephone Sebastian Son [facility] .0.114 350.1.13.10 4.2.7.2.686 [id number] [facility] 2024-06-29 00:00:00 2024-06-30 09:18:11 Telephone Sebastian Son [facility] 1.0.114 350.1.13.10 4.2.7.2.686 [id number] [facility] 2024-05-18 00:00:00 2024-05-19 09:23:40 Telephone Sebastian Son [facility] 1.2.840.114 350.1.13.10 4.2.7.2.686 [id number] [facility] 2024-05-05 00:00:00 2024-05-08 08:45:24 Refill [facility] 1.2.840.114 350.1.13.10 4.2.7.2.686 [id number] [facility] 2024-03-22 10:30:00 2024-03-22 10:30:00 Outpatient R SEBASTIAN SON [facility] [id number] [facility] 2024-03-16 00:00:00 2024-03-16 16:41:05 Telephone Sebastian Son [facility] 1.2840.114 350.1.13.10 4.2.7.2.686 [id number] [facility] 2024-02-25 11:00:00 2024-02-25 11:15:00 Wafer Fabrication Operator Visit [facility] Sebastian Son [facility] 1.2.840.114 350.1.13.10 4.2.7.2.686 [id number] [facility] 2024-02-25 10:30:00 2024-02-25 10:33:03 Outpatient R SEBASTIAN SON [facility] [id number] [facility] 2024-02-25 10:30:00 2024-02-25 10:33:03 Office Visit Sebastian Son [facility] 1.2.840.114 350.1.13.10 4.2.7.2.686 [id number] [facility] 2023-12-25 00:00:00 2024-01-29 18:25:01 Patient Secure Msg Doctor Unassigned, [place] Doctor Unassigned, [place] [facility] 1..840.114 350.1.13.10 4.2.7.2.686 [id number] [facility] 2024-01-28 00:00:00 2024-01-28 15:14:13 Telephone Eugenio Gal[facility] 1..114 350.1.13.10 4.2.7.2.686 [id number] [facility] 2024-01-28 09:30:00 2024-01-28 09:51:15 Outpatient R SEBASTIAN SON [facility] [id number] [facility] 2024-01-28 09:30:00 2024-01-28 09:51:15 Office Visit Sebastian Son [facility] 1.840.114 350.1.13.10 4.2.7.2.686 [id number] [facility] 2024-01-18 00:00:00 2024-01-18 14:05:54 Telephone Winifred August [facility] 1.840.114 350.1.13.10 4.2.7.2.686 [id number] [facility] 2024-01-18 00:00:00 2024-01-18 13:44:26 Telephone Winifred August [facility] 1.840.114 350.1.13.10 4.2.7.2.686 [id number] [facility] 2024-01-05 00:00:00 2024-01-05 16:40:11 Refill Sebastian Son [facility] 1.0.114 350.1.13.10 4.2.7.2.686 [id number] [facility] 2023-12-31 09:30:00 2023-12-31 09:59:56 Outpatient R SEBASTIAN SON [facility] [id number] [facility] 2023-12-31 09:30:00 2023-12-31 09:59:56 Office Visit Sebastian [facility] 1.0.114 350.1.13.10 4.2.7.2.686 [id number] [facility] 2023-12-22 13:56:00 2023-12-22 15:03:00 Emergency X KENDRA MAYS SANDRA [facility] ERT [id number] [facility] 2023-12-22 13:56:00 2023-12-22 15:03:00 Emergency Kendra Mays [facility] AT [facility] 1.840.114 350.1.13.10 4.2.7.2.686 [id number] [facility] 2023-12-21 00:00:00 2023-12-21 13:45:05 Telephone Vin Quintanilla [facility] 1..114 350.1.13.10 4.2.7.2.686 [id number] [facility] 2023-12-16 00:00:00 2023-12-17 17:18:42 Telephone Sebastian Son [facility] 1.840.114 350.1.13.10 4.2.7.2.686 [id number] [facility] 2023-12-13 00:00:00 2023-12-13 14:53:20 Telephone Sebastian Son [facility] 1.2.840.114 350.1.13.10 4.2.7.2.686 [id number] [facility] 2023-12-10 09:30:00 2023-12-10 09:45:33 Outpatient R SEBASTIAN SON [facility] [id number] [facility] 2023-12-10 09:30:00 2023-12-10 09:45:33 Office Visit Sebastian Son [facility] 1.2.840.114 350.1.13.10 4.2.7.2.686 [id number] [facility] 2023-11-02 00:00:00 2023-11-02 13:30:33 Telephone Vin Quintanilla [facility] 1.2.840.114 350.1.13.10 4.2.7.2.686 [id number] 028 [id number] [facility] 2023-10-05 16:20:00 2023-10-05 16:28:01 Out[facility] [id number] [facility] 2023-10-05 16:20:00 2023-10-05 16:28:01 Office Visit Vin Quintanilla [facility] 1.2.840.114 350.1.13.10 4.2.7.2.686 [id number] [facility] 2023-10-01 00:00:00 2023-10-01 13:06:36 Telephone Carin Bates [facility] 1.2.840.114 350.1.13.10 4.2.7.2.686 [id number] [facility] 2023-09-29 00:00:00 2023-09-29 08:49:30 Telephone Carin Bates [facility] 1.2.840.114 350.1.13.10 4.2.7.2.686 [id number] [facility] 2023-09-01 00:00:00 2023-09-01 00:00:00 Telephone Marck Jordan [facility] 1.2.840.114 350.1.13.10 4.2.7.2.686 [id number] [facility] 2023-09-01 00:00:00 2023-09-01 00:00:00 Telephone Sebastian Son [facility] 1.2.840.114 350.1.13.10 4.2.7.2.686 [id number] [facility] 2023-08-23 00:00:00 2023-08-23 00:00:00 Telephone Jana [facility] 1.2.840.114 350.1.13.10 4.2.7.2.686 [id number] [facility] 2023-08-05 16:15:00 2023-08-05 16:15:00 Office Visit Carin Bates [facility] 1.2.840.114 350.1.13.10 4.2.7.2.686 [id number] [facility] 2023-08-05 14:45:00 2023-08-05 15:00:00 Wafer Fabrication Operator Visit [facility] Adelaida [facility] 1.2.840.114 350.1.13.10 4.2.7.2.686 [id number] [facility] 2023-08-05 14:45:00 2023-08-05 14:45:00 Outpatient R SEBASTIAN SON [facility] [id number] [facility] 2022-04-06 10:10:00 2022-04-06 10:11:00 Outpatient Elective Ingrid Perdomo [facility] [id number] [facility] 2022-04-06 10:10:00 2022-04-06 10:10:00 Outpatient Elective Ingrid Perdomo [facility] [id number] [facility] 2022-01-06 10:39:00 2022-01-06 17:31:00 Emergency Emergency Obie Collins [facility] [id number] [facility] 2022-01-06 10:39:00 2022-01-06 10:39:00 Emergency Emergency Zeke Chu [facility] [id number] [facility] Results Test Description Test Time [...] code = NRBCP) 0 % Comprehensive Metabolic [id number] 12:15:00* Test Item Value Reference Range Interpretation [...] ode = ALP) 107 IU/L 45-122 N [id number] 12:15:00* Test Item Value Reference Range Interpretation Comme nts Lipase (test code = LIP) 98 IU/L 73-393 N Troponin I High [id number] 12:15:00* Test Item Value Reference Range Interpretation Comme nts Troponin I High Sensitivity (test code = TROPHS) 4.5 ng/L 0-58.9 N [facility] [address] [address] Patient Name: Franky Ward Medical Record#: [id number] Address: [address] [place] [address] Account#: [id number] City/State/Zip: [place] [address]: Ingrid Perdomo MD Insurance: Medicare A B /Age/Sex: 1950/71/M Norris Admit/Reg Date: 04/06/[address]: Misa Corrales Location: [facility]/ PCP: Pcp-Md RUSS Pineda Date of Service: 04/06/22 Order (s): BD bone densitometry axial CPT Code: 91731 Report Number: [id number] Reason for Exam: [id number] EXAM: DEXA scan with FRAX: INDICATION: 71-year-old male for bone mineral assessment/fracture probability assessment. COMPARISON: None TECHNIQUE: A DEXA study was performed utilizing a [employer] QDR series scanner. The study included assessment of the patient's bone mineral density within the lumbar spine, right hip, and left hip. The area of the lowest bone mineral density was then compared to the mean bone mineral density average of a young adult. The subsequent classification of normal, osteopenia, or osteoporosis was then based on the World Health Organization (WHO) classification system (T- score). A FRAX algorithm was also developed by the WHO. This calculates an oste openic patient's 10 year fracture probability as a percent risk. The fracture tool incorporates thepatient's bone mineral density with 11 potential clinical risk factors for osteoporosis. A 10 year fracture risk of greaterthan 20% for an osteoporotic fracture or greater than 3% for a hip fracture,is a indication for intervention in post menopausal [...] IMPRESSION: 1. WHO classification: Osteoporosis 2. Fracture risk: High Please see the computer-generated report Dictated By: Nima Nelson MD 04/06/22 1143 Signed By: Nima Nelson MD 04/06/22 1151 TD/TT: 04/06/22 1143 Tech: [id number] cc: MALENA; PCPNO* Ingrid Perdomo MD; Pcp-Md Miriam [address] [address] Patient Name: Franky Ward Medical Record#: [id number] Address: [address] [place] [address] City/State/Zip: [place] [address]: Zeek Chu MD Insurance: Medicare A B /Age/Sex: 1950//[facility] Admit/Reg Date: 01/06/[address]: Heri chairez NP Location: [facility]/ PCP: Pcp- Md RUSS Pineda Date of Service: 01/06/22 Order (s): XR abdomen 2V CPT Code: 14748 Report Number: [id number] Reason for Exam: abd pain, vomiting X-ray [...] obstruction. 2. Questionable punctate right nephrolithiasis versus overlyingcalcification. Dictated By: Cosme Buchanan MD 01/06/22 1434 Signed By: Cosme Buchanan MD 01/06/22 1442 TD/TT: 01/06/22 1434 Tech: [facility] cc: [id number]; PCPNO* Heri Montemayor NP; Pcp-Md RUSS Pineda Notes Date/Time Note Provider Source 2025-01-26 11:30:52 Copied from [facility] #[id number]. Topic: Clinical - Medical Advice >> Jan 26, 2025 11:28 AM Patient [employer] wrote: Alvin with [facility] checking on status of Dupixent request. Notified him patient has not been seen in over a year and was denied. Patient is scheduled for future appointment Siobhan Lee [facility] 2025-01-23 14:49:37 Nurse called and spoke with PT. Nurse offered PT an appointment on at 2:[address] Howell at [facility] PT confirmed and appointment details were put in overbook chat Requested Prescriptions Pending Prescriptions Disp Refills dupilumab (DUPIXENT PEN) 300 mg/2 mL PnIj 12 pen 5 Sig: Inject 1 pen under the skin weekly. There is no refill protocol information for this order Recent Visits Date Type Provider Dept 02/25/24 Office Visit Sebastian Son MD [facility] 01/28/24 [facility] Showing recent visits within past 365 days and meeting all other requirements Future Appointments No visits were found meeting these conditions. Showing future appointments within next 365 days and meeting all other requirements Refill request denied. MINGO was over 1 year ago. PT will need to be seen in clinic before medications can be prescribed again. Netta Bach LVN 01/23/2025 2:49 PM [facility] Dermatology [facility] 2025-01-22 13:39:32 [facility] [facility] #[id number]. Topic: Clinical - Medical Advice >> Jan 22, 2025 1:37 PM Patient Welder Production Line Combination wrote: Franky Ward is a 74 year old male Requesting refill of dupilumab (DUPIXENT PEN) 300 mg/2 mL PnI Patient stated [facility] pharmacy? Send refill request to their fax [phone] or call [phone] Patient requesting a call back when this is done Siobhan Lee [facility] 2024-11-09 10:53:04 Returned call to nurse for Dr. Beverly. This nurse spoke with Dr. 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 Beverly if any arise. No further concerns, closing encounter. Yu Hart [facility] 2024-11-07 15:07:08 Copied from [facility] #[id number]. Topic: Clinical - Medical Advice >> Nov 07, 2024 3:04 PM Patient Welder Production [employer]ination wrote: The eye center from Dr. Beverly calling requesting speak with a nurse in regards needing star a new medication Recindyffra, please advise Phone # [phone] Gricel Perea [facility] 2024-06-30 09:16:54 Forms completed, awaiting MD signature and will fax when signed. Closing encounter. IAGE THERAPIST Yu Hart [facility] 2024-06-29 08:55:05 Images from the original note were not included. Extra forms needed to be completed places in forms folder. Mcgill [facility] 2024-05-19 13:38:44 Addended by: YU HART on: 05/19/2024 01:38 PM Modules accepted: Orders IAGE THERAPIST Yu Hart [facility] 2024-05-19 13:37:25 Keflex 500mg BID x 10 days sent to [facility] pharmacy per Dr. Son. Pt notified. No further concerns at this time. [facility] 2024-05-19 11:30:51 Can you send him 10 days of Keflex 500 mg twice a day. [facility] 2024-05-19 09:18:32 Spoke to patient and he states that he spoke to [employer] [facility] program and they told him the form we sent off is incorrect because the form is not the one that is needed as the form has to say "re-enrollment" as patient was on the program before. Advised patient this nurse will follow up with Netta FERNÁNDEZ as she is the one that fax form over to [employer] [facility] to see how we can get this corrected. Pt states he is needing a refill of Keflex as his lower leg is infected again and has puss coming from the area. Advised patient that he would need to come into clinic to be evaluated before antibiotics are prescribed and pt states he does not have a ride to get here since his daughter has his car and will not be bringing it back til late next week. Pt states he can talk to provider over the phone to describe what is going on with his foot but he can not make it into clinic. Advised patient this nurse will send a message to provider in regards to possibly refilling Keflex without being seen in clinic. Pt verbalized understanding. Dillon LVN [facility] 2024-05-18 16:13:18 Franky Ward is a 73 year old male Patient calling to receive update on Dupixent forms, was instructed to call back Also needs refill of cephALEXin 500 mg capsule IAGE THERAPIST Alvin Hendrix [facility] 2024-05-08 16:45:15 Nurse completed [employer] my way forms and faxed in. Nurse called and advised PT. Netta Bach LVN 05/08/2024 4:46 PM Bach [facility] 2024-05-08 08:41:12 Requested Prescriptions Pending Prescriptions Disp Refills dupilumab (DUPIXENT PEN) 300 mg/2 mL PnIj 12 Pen 5 Sig: inject 1 Pen under the skin weekly. There is no refill protocol information for this order Recent Visits Date Type Provider Dept 02/25/24 Office Visit Sebastian Son MD [facility] 01/28/24 [facility] 12/31/23 Office Visit Sebastian Son MD [facility] 12/10/23 Office Visit Sebastian Son MD [facility] 10/05/23 Office Visit Vin Quintanilla PA-C [facility] Derm Faculty Showing recent visits within past 365 days and meeting all other requirements Future Appointments No visits were found meeting these conditions. Showing future appointments within next 365 days and meeting all other requirements Refill request denied: PT has refills at pharmacy and needs to reach out to pharmacy for refills. Refill request to soon. Netta Bach LVN 05/08/2024 8:44 AM [facility] Dermatology , [facility] Netta Bach [facility] 2024-05-05 17:14:57 Franky Ward is a 73 year old male Patient calling to check the status of forms that need to be filled out by Dr. Son for co pay assistance program . [phone] (home) [facility] 2024-05-05 08:44:11 Franky Ward is a 73 year old male 2x calling [employer] Fax # [phone] Patient is calling stating that he called on 05/03/2024 regarding paperwork from [employer] that was faxed to clinic regarding RX dupixent assistance program. He states that [employer] informed patient that they were faxing over the paperwork to the clinic for Dr. Son to fill out for 2024 due to patient needing to re-enroll in their assistance program. Patient then states that he will also need to come by the clinic and sign it as well. Paperwork needs to be returned by 05/16/2024 [employer] can be reached at [phone] Please call patient at [phone] (home) Perea [facility] 2024-05-05 08:27:07 Franky Ward is a 73 year old male Patient is calling stating that he called on 05/03/2024 regarding paperwork from [employer] that was faxed to clinic regarding RX dupixent assistance program. He states that [facility] informed patient that they were faxing over the paperwork to the clinic for Dr. Son to fill out for 2024 due to patient needing to re-enroll in their assistance program. Patient then states that he will also need to come by the clinic and sign it as well. Paperwork needs to be returned by 05/16/2024 [employer] can be reached at [phone] Please call patient at [phone] (home) Ibanez [facility] 2024-03-16 16:33:47 Images from the original note were not included. Lab report received by clinic. Up loaded via on base and faxed to medical records. Netta Bach [facility] 2024-02-25 11:00:00 Images from the original note were not included. Venipuncture collection performed by clean technique on the right anticubitus. Total of 1 attempts were made. Slight pressure and a bandage/dressing were applied to the site(s). The patient experienced no complications. The following specimens were processed according to instructions and sent to [facility] laboratories per lab order on 02/25/2024 : LT BLUE SST 3 RED LAV 2 PPT DK GREEN (LiHep) DK GREEN (SodH) MALDONADO DK BLUE (K2) DK BLUE (S) ACD Blood Culture NIPT/NTD [facility] 2024-01-28 14:52:11 Summary: Call the patient to confirm Dupixent dosing Franky Ward 1950 [id number] Payor: MEDICARE / Plan: MEDICARE PART A & B / Product Type: Medicare / Wt Readings from Last 3 Encounters: 12/22/23 97.5 kg (215 lb) 10/05/23 97.5 kg (215 lb) 01/18/18 97.5 kg (215 lb) Past Medical History: Diagnosis Date Acid reflux Arthritis BPH (benign prostatic hyperplasia) CAD (coronary artery disease) Cataract Giant cell arteritis Hypertension Diagnosis: bullous Pemphigoid Consulted: Dr. Son Medication: Dupixent 300mg weekly instead of every 2 weeks Pharmacy: [facility] Called the patient to convey the message that Dr. Son would like the patient to stay on DUPIXENT 300mg every 2 weeks because the patient is receiving the medication from [facility] . The PAP process (drug drupal developer: [employer] ) will only approve FDA approve directions even though clinically Dupixent once a week has been prescribed before in other cases. Patient understood the recommendations, and will follow up with the provider if additional prednisone is needed. Eugenio Galo, PharmD., AE-C Pharmacy Clinical Table Setter - Dermatology Contact: Eugenio Galo [facility] 2024-01-28 09:30:00 Addended by: SEBASTIAN SON on: 01/30/2024 06:30 PM Modules accepted: Level of Service [facility] 2024-01-18 14:33:22 Called [employer] at [phone] to verify that patient had refills. Helen at [facility] states they do have refills available and need the patient to contact them to set up delivery. Called patient back and gave him [employer]'s number to call and schedule delivery. Bee Beasley RN [facility] 2024-01-18 14:04:51 Called patient to let him know that Dupixent was sent on 12/31/23 with 5 refills, however patient states that pharmacy told him that they are waiting for paperwork from Dermatology. Reached out to Nadya Nunez to follow up on Dupixent. Bee Beasley RN [facility] 2024-01-18 13:44:01 Duplicate encounter. Closing. Bee Beasley RN [facility] 2024-01-18 12:04:34 Franky Ward is a 73 year old male Patient states he has been calling to speak with a nurse as he was informed he would get a call back from clinic. Per patient he is on his last injection and he has a bad flare of bullous, doesn't want to wait for 4 weeks until he gets medication order. Please advise Zackary Head [facility] 2024-01-18 11:47:45 Franky Ward is a male 73 year old 1950 Patient states needing speak with nurse in regards dupilumab (DUPIXENT PEN) 300 mg/2 mL PnIj Please advise Phone # [phone] Gricel Perea [facility] 2024-01-05 16:37:24 Requested Prescriptions Pending Prescriptions Disp Refills methotrexate 2.5 mg tablet 16 tablet 0 Sig: Take 4 tablets by mouth weekly There is no refill protocol information for this order Recent Visits Date Type Provider Dept 12/31/23 Office Visit Sebastian Son MD [facility] Derm Faculty 12/10/23 Office Visit Sebastian Son MD [facility] 10/05/23 Office Visit Vin Quintanilla PA-C [facility] Derm [facility] Showing recent visits within past 365 days and meeting all other requirements Future Appointments Date Type Provider Dept 01/28/24 Appointment Sebastian Son MD [facility] Derm [facility] Showing future appointments within next 365 days and meeting all other requirements Refill request denied, MINGO medication was changed do to side effects. Nurse printed refill request form, marked it denied and faxed back to [facility]. Netta Bach LVN 01/05/2024 4:37 PM [facility] Dermatology Health 2024-01-05 16:37:00 Images from the original note were not included. Health 2023-12-22 14:57:25 Pt discharged with diagnosis of temporal arteritis, encouraged hydration. Printed and verbal instructions reviewed with and given to pt. Pt. verbalized understanding of teaching and recommended follow-up. Denies questions or concerns at this time. Pt ambulatory at discharge. Appears in no apparent distress. No ataxia noted. Pt accompanied by family member. Advised to seek medical attention for new/prolonged/worsening of symptoms Pricila Garcia RN [facility] 2023-12-22 13:43:11 Pt has large blisters to left foot and left andersen area. States he's taking a medication called actemra that has a side effect of "blisters" to the body. He's been having a hard time getting ahold of his fisher pot and is concerned he's having a reaction. Here because he would like abx. Pili Moreno RN [facility] 2023-12-22 13:33:00 [facility] Emergency Department Note Patient Name: Franky Ward Date of : 1950 73 year old male Treatment Room: [place] [address] Primary Care Physician: Inessa Wyman Patient Escorted by: Family [5] Mode of Arrival: Personal means [1] EMS Treatment Prior to ED Arrival: Travel and Exposure Screening: Symptoms Does patient have any of these symptoms?: (not recorded) Exposure Screening Has patient had contact with someone with a communicable disease in the last month?: (not recorded) Diseases exposed to:: (not recorded) Is Patient ?: (not recorded) Exposure Date: (not recorded) Chief Complaint: Chief Complaint Patient presents with Blister History of Present Illness: The patient presents from home for evaluation for wound check. He has a recent history of bullous pemphigus that started after he was initiated on medication for temporal arteritis. He reports he has been following with both dermatology and rheumatology regarding these 2 elements. He was concerned there was infection noted to the wounds to his left foot and therefore was started on Keflex by his fisher pot yesterday. He had 1 dose yesterday evening and 1 dose this morning. He also reports he has had blisters to his feet that he has been popping on his own. He reports sometimes they have clear fluid and sometimes bloody fluid. No fevers. No history of diabetes. Here for evaluation. Past Medical History/Immunizations: Past Medical History: Diagnosis Date Acid reflux Arthritis BPH (benign prostatic hyperplasia) CAD (coronary artery disease) Cataract Giant cell arteritis Hypertension Allergies: Allergies Allergen Reactions Doxycycline Nausea and/or Vomiting Morphine Other - See comments Pt states he does ok if given Morphine slowly. Had a reaction in the past when Morphine was given "too fast." States he was jerking/twitching. Past Social History: Tobacco Use Every Day; 0.5 packs/day; Types: Cigarettes Smokeless Tobacco: Never used smokeless tobacco. Alcohol Use Yes; 42.0 standard drinks of alcohol per week; 42 Standard drinks or equivalent. Comments: 6-pack per day Drug Use No. Past Surgical History: Past Surgical History: Procedure Laterality Date ARTHROSCOPIC SHOULDER ROTATOR CUFF REPAIR Bilateral KNEE ARTHROSCOPY Left Multiple OPEN SHOULDER ROTATOR CUFF REPAIR Left 04/03/2015 Surgeon: Robby Atkins MD; Location: [facility] OR LOCATION PHACOEMULSIFICATION OF CATARACT WITH INTRAOCULAR LENS IMPLANT Right 01/19/2018 Surgeon: King Thrasher MD; Location: [facility] OR Location TRIGEMINAL NERVE BLOCK VASECTOMY Later had vasectomy reversal Review of Systems: Review of Systems Constitutional: Negative for chills and fever. Respiratory: Negative for cough. Cardiovascular: Negative for chest pain. Gastrointestinal: Negative for abdominal pain and vomiting. Genitourinary: Negative for dysuria. Musculoskeletal: Negative for arthralgias, neck pain and neck stiffness. Skin: Positive for wound. Neurological: Negative for dizziness. Psychiatric/Behavioral: Negative for agitation. Endocrine: Negative for goiter. Physical Exam: ED Triage Vitals [12/22/23 1345] Weight 97.5 kg (215 lb) Actual or estimated Estimated by patient/family report Height 1.702 m (5' 7") BP (!) 190/98 Pulse 68 Resp 18 Temp 36.6 ?C (97.8 ?F) Temp source Oral SpO2 98 % Measured on Room air Physical Exam Vitals and nursing note reviewed. Constitutional: Appearance: Normal appearance. HENT: Head: Normocephalic and atraumatic. Cardiovascular: Rate and Rhythm: Normal rate and regular rhythm. Pulmonary: Effort: Pulmonary effort is normal. No respiratory distress. Abdominal: General: There is no distension. Tenderness: There is no abdominal tenderness. Musculoskeletal: General: Normal range of motion. Cervical back: Normal range of motion and neck supple. Skin: Comments: Well-healing wound to the left foot as well as the left andersen without active drainage, warmth or surrounding erythema. Neurological: General: No focal deficit present. Mental Status: He is alert and oriented to person, place, and time. Radiology: No orders to display Lab Results: Lab Results - No data to display EKG: If EKG completed, see Procedure Note. Orders and Treatments: No orders of the defined types were placed in this encounter. No orders of the defined types were placed in this encounter. First Provider Eval: ED Events Date/Time Event User Comments 12/22/23 1341 Medical Screening Begins KENDRA MAYS DO -- 12/22/23 1341 First Provider Evaluation KENDRA MAYS DO -- ED COURSE Diagnosis/Impression as of 12/22/23 1448 Temporal arteritis Visit for wound check Procedures: Procedures MDM: Medical Decision Making The patient presents from home for evaluation for wound check. He has a recent history of bullous pemphigus that started after he was initiated on medication for temporal arteritis. He reports he has been following with both dermatology and rheumatology regarding these 2 elements. He was concerned there was infection noted to the wounds to his left foot and therefore was started on Keflex by his fisher pot yesterday. He had 1 dose yesterday evening and 1 dose this morning. He also reports he has had blisters to his feet that he has been popping on his own. He reports sometimes they have clear fluid and sometimes bloody fluid. No fevers. No history of diabetes. Vital signs are stable here in the ER. He has well-healing wounds to his left foot as well as his left andersen. No clinical evidence of cellulitis based on his presentation. Recommend he continue the antibiotics he was started on yesterday evening by his fisher pot. Will also place referral for mine superintendent within the [facility] system as he is concerned the medication he is taking for his temporal arteritis is causing his pemphigus. He remained stable here in the ER and is okay for discharge home with PCP follow-up. Problems Addressed: Temporal arteritis: chronic illness or injury Visit for wound check: acute illness or injury Flowsheet Documentation: Scoring Tools: No data recorded Disposition/Condition: ED Disposition ED Disposition Disch - Home Condition Stable Comment -- Discharge Medications: Patient's Medications START taking these medications No medications on file CONTINUE taking these medications which have NOT CHANGED ASPIRIN 81 MG EC TABLET Take 81 mg by mouth daily. CA ACETATE-ALUM SULFATE (ASTRINGENT) TOPICAL PACKET Apply 1 Packet to area(s) in the morning and 1 Packet in the evening. CEPHALEXIN 500 MG CAPSULE Take 1 capsule by mouth in the morning and 1 capsule in the evening. Do all this for 7 days. DUPILUMAB (DUPIXENT PEN) 300 MG/2 ML PNIJ inject 1 Pen under the skin every 2 (two) weeks. Starting on day 15. ERGOCALCIFEROL, VITAMIN D2, (VITAMIN D ORAL) Take by mouth. FOLIC ACID 1 MG TABLET Take 1 tablet by mouth in the morning. METHOTREXATE 2.5 MG TABLET Take 4 tablets by mouth weekly METOPROLOL SUCCINATE XL (TOPROL XL) 50 MG 24 HR TABLET Take 50 mg by mouth daily. MUPIROCIN 2 % OINTMENT Apply to area(s) 2 (two) times daily. OMEPRAZOLE (PRILOSEC) 40 MG CAPSULE Take 40 mg by mouth daily. PREDNISONE 20 MG TABLET Take 3 tabs (60 mg) daily for 1 week, then 2 tabs (40 mg) daily for 2 weeks, then 1 tab (20 mg) daily for 2 weeks TRIAMCINOLONE ACETONIDE 0.1 % CREAM Apply to area(s) 2 (two) times daily. VITAMIN B-12 (VITAMIN B-12) 100 MCG TABLET Take 50 mcg by mouth daily. VITAMIN C (VITAMIN C) 100 MG TABLET Take 100 mg by mouth daily. START taking Modified Medications as Prescribed No medications on file STOP taking these medications No medications on file Follow-up: Contact information for follow-up Inessa Rodríguez Specialty: FM-FAMILY MEDICINE Relationship: PCP - General [address] [place] [address] [facility] [id number] Electronically signed by: Kendra Mays DO 12/22/23 1440 [facility] 2023-12-21 16:41:43 Thanks. I spoke w him [facility] 2023-12-21 16:41:40 Addended by: SEBASTIAN SON W on: 12/21/2023 04:41 PM Modules accepted: Orders [facility] 2023-12-21 16:40:29 Addended by: SEBASTIAN SON on: 12/21/2023 04:40 PM Modules accepted: Orders [facility] 2023-12-21 13:35:32 Spoke to patient and patient is very upset that he is on Methotrexate medication as he said this medication is for cancer patient and he does not have cancer. Pt state he needs antibiotics and that is it and he does not want Doxycycline because it makes him sick. Verified that Doxycycline is apart of allergies on file which it is. Pt states that he will go to the ER if he does not get a call today about all of this. Pt also states his blisters on his legs are open and leaking clear fluid and have some blood coming from the areas. Advised patient that if his he feels he needs to go to the ER or urgent care then that is best. Pt did mention that the dupixent injections are not working on his lower legs. Pt wants the provider to call him today with an answer to all of this. Advised patient this nurse will send this encounter to provider to have the provider call patient back about his concerns. Pt verbalized understanding. Lindsey Dillon LVN [facility] 2023-12-21 13:28:57 Franky Ward is a 73 year old male Patient calling stating he has not heard back from anyone regarding this medication. He states states his foot is "really really bad" and there was "just clear water coming out" but "now its blood." Transferred call to Lindsey Dillon LVN. Faye Ibanez [facility] 2023-12-21 09:24:27 Summary: Foot Patient would like nurse to call him back about his foot, blisters are getting worse, he wants some oral antibiotics, stated that if no one calls him back he will need to go to the ER, Please call patient at [phone] Tasha Watson [facility] 2023-12-17 17:16:19 Images from the original note were not included. PA approval received by clinic. Nurse printed letter and faxed to pharmacy. Netta Bach LVN 12/17/2023 5:16 PM Netta Bach [facility] 2023-12-16 15:52:24 Images from the original note were not included. [facility] 2023-12-13 14:52:21 Called patient and voicemail was full. If patient call back please let him know that I have routed to the provider and a provider will contact him once they review the encounter. Bee Beasley RN [facility] 2023-12-13 13:45:37 Patient called back stating he hasn't heard anything about a new prescription. He explained the situation of the medications again. He would like to be contacted when an antibiotic is being sent to the pharmacy. Thank you. Zulay Watson [facility] 2023-12-13 11:03:01 Routing to provider for further assistance. T [facility] 2023-12-13 08:05:05 Franky Ward is a 73 year old male Patient requesting to speak with Dr. Son in regards to rx methotrexate 2.5 mg tablet, per patient he asked Dr. Son for antibiotics to treat his foot. Patient states medication caused him to throw up and after taking 4 pills it gave him a headache. After reading over methotrexate medication it states this is for cancer patients and is concerned, why he was prescribed medication. Patient states that while taking medication side effects are more prone to infections and may cause hair loss, Patient is concerned and would like to discuss other alternatives as he will not be taking this medication. Please advise Zackary Head [facility] 2023-11-02 13:23:36 Images from the original note were not included. Fax received by clinic. Nurse fax request over to medical records T Netta Bach [facility] 2023-10-05 16:20:00 Addended by: ELENA DELACRUZ on: 10/05/2023 04:42 PM Modules accepted: Orders [facility] 2023-10-01 13:02:51 Patient states he has concerns about giving dupixent loading dose at home alone due to potential risk of anaphylaxis. Offered a nurse visit, but patient declined and stated he will bring the dupixent injection to his f/u visit on 10/05/23. Patient states he is comfortable giving the injection himself, but would like to be monitored post injection. Bee Beasley RN [facility] 2023-10-01 11:54:15 Copied from [facility] #[id number]. Topic: Clinical - Medical Advice >> October 01, 2023 11:52 AM Patient Welder Production Line Combination wrote: Franky Ward is a 72 year old male Patient calling back states he has not had any luck reaching clinic. Patient needs to speak with a nurse or provider in regards to Rx Dupixent. Side effects as he is concern. He still itching and has some pain Please advise Zackary Head [facility] 2023-09-29 08:48:59 Tried to call patient but there was no answer and left a vm to call clinic back with his questions about Dupixent. Lindsey Dillon LVN [facility] 2023-09-29 08:34:31 Copied from [facility] #[id number]. Topic: Clinical - Medical Advice >> September 29, 2023 8:32 AM Patient Welder Production Line Combination wrote: Franky Ward is a 72 year old male Patient requesting to speak with a nurse states he has questions about the side effects for Rx Dupixent. He states he has to take 2 at a time and he is a bit concern as he lives alone. States bumps are still visible and is itching and very painful. Please advise Zackary Head [facility] 2023-09-01 12:00:11 Called the patient to let them know about their PAP application status. Let the patient know they need to call [facility] and [facility] and express "Financial Need/Hardship" to them, before the application can move forward. Robby Farley [facility] 2023-09-01 10:11:00 Lvm to advised pt,there is no open slots for Wednesday.We can try and schedule him on another day. Viola Jarrell [facility] 2023-09-01 09:55:01 Copied from [facility] #[id number]. Topic: Clinical - Medical Advice >> Sep 01, 2023 9:46 AM Patient Welder Production Line Combination wrote: Franky Ward is a 72 year old male Patient is calling stating that he has one week left of RX predniSONE 20 mg tablet and has one week left. He was informed that he needs his injection otherwise his condition will come back. He states he should have already had the injections at his house. He states Scott was supposed to call him but he has not heard anything back from him. Messaged Scott via [employer]. Received no response. [phone] (home) Please advise. Faye Timmons [facility] 2023-09-01 09:54:24 Copied from [facility] #[id number]. Topic: Appointment - Schedule Appointment >> Sep 01, 2023 9:53 AM Patient Welder Production Line Combination wrote: Franky Ward is a 72 year old male Patient is calling and would like to be seen this Wednesday, 09/02 for a follow up appt in [place] after 9 am. Patient was not able to go to previous appts due to surgery. He states just text me or email me. Call disconnected. [phone] (home) Please advise. Faye Reedlinda [facility] 2023-08-31 10:21:34 Patient is being enrolled in pap and is with our financial analysis manager specialist Robby Farley who has submitted the application Scott Ashford [facility] 2023-08-25 08:40:48 Tried to call pt but there was no answer and left a vm. Scott is currently out of office and will forward this encounter to Scott wo he can follow up regards to medication for this patient. Lindsey Dillon LVN [facility] 2023-08-23 11:32:33 Franky Ward is a 72 year old male Patient calling states he had a missed call from clinic in regards to a medication he is waiting on to be ordered and is to be sent to a mail order pharmacy Please advise [phone] (home) Inez Spears Chriss [facility] 2023-08-23 10:34:27 Franky Ward is a 72 year old male Pt is calling stating that he has not received a call for clinic about medication that was to be ordered two weeks ago. Pt states that Scott was to contact him with name of medication and was to be sent to mail order pharmacy. Please contact at [phone] (home) Dupixent 300 mg/2 mL subcutaneous pen injector (dupilumab) Leah Grey [facility] 2023-08-05 16:15:00 Addended by: SEBASTIAN SON on: 08/07/2023 07:54 PM Modules accepted: Orders [facility] 2023-08-05 14:45:00 Images from the original note were not included. Venipuncture collection performed by clean technique on the right anticubitus. Total of 1 attempts were made. Slight pressure and a bandage/dressing were applied to the site(s). The patient experienced no complications. The following specimens were processed according to instructions and sent to [facility] laboratories per lab order on 08/05/2023 : LT BLUE SST 3 RED LAV 1 PPT DK GREEN (LiHep) 1 DK GREEN (SodH) MALDONADO DK BLUE (K2) DK BLUE (S) ACD Blood Culture NIPT/NTD [facility] 2022-01-06 11:11:00 [facility] [address] [place] [id number] Emergency Department Document Signed Patient: Franky Ward Medical Record#: [id number] : 1950 Acct:[id number] Age/Sex: 71 / M Admit/Reg Date: 01/06/22 Loc: [facility] Room: Report Number: [id number] Attending Dr: Obie Collins DO <Obie Collins - Last Filed: 01/06/22 17:24> Abdominal Pain HPI - General Chief Complaint: Abdominal Pain Stated Complaint: abd pain - vomiting Primary Care Provider: Pcp-MiriamMd - History of Present Illness HPI narrative: I saw and evaluated the patient. I agree with the findings and plan of care as documented in the ASSOCIATE MEDIA PLANNER's note. The patient presented with nausea and [...] Normal sinus rhythm with rate of 67. VT intervals appear to be within normal limits. [...] % (Auto) 89.0, Lymph % (Auto) 3.6, [place] % (Auto) 3.8, Eos % (Auto) 3.3, Baso % (Auto) 0.1, Neut # (Auto) 7.3, Lymph # (Auto) 0.3 L, [place] # (Auto) 0.3, Eos # (Auto) 0.3, [...] rhythm. No ectopy. No significant acute ST a bnormalities. This EKG was also interpreted by Dr. [...] the patient. Patient will be redrawn. - [facility] Medical Decision Making Narrative: 01/06/22 17:20 [...] metabolic panel. This patient was co-managed with Dr. Chu and Dr. Collins, ED attendings. Patient states he is feeling much better after receiving medications. The results of pertinent diagnostic studies and exam findings were discussed with the patient and/or family. The patient´s provisional diagnosis and plan of care were [...] 14 RF: 0 Transmission Status: Received by [facility] #[id number] ondansetron 4 mg tablet,disintegrating 4 mg PO Q8H PRN (Reason: Nausea And Vomiting) Qty: 9 RF: 0 Transmission Status: Received by [facility] #[id number] Referrals: Pcp-Md Pineda MD [Primary Care Provider] - Print Language: Kyrgyz Dictated By: Heri Montemayor NP Signed By: Heri Montemayor NP 01/06/22 1730 Zeke Chu MD 01/08/22 0316 Obie Collins DO 01/07/22 0316 DD/ 1111 TD/TT: 01/06/22 1111 Television News Video Editor: [id number] cc: OSIRIS* Pcp-None,Md SOLANO MCSETXm
[2025-02-11] MEDS ORDERED: NA CHLORIDE 0.9% 1,000 ML ONE (02:01)
[2025-02-11 02:11] LABS: Absolute Lymphocytes (CBC) 2.0 K/uL (0.7-4.9); Hematocrit 45.7 % (39.6-49.0); Hemoglobin 15.5 g/dL (13.6-17.9); MCH 32.3 pg (27.0-35.0); MCHC 33.8 g/dL (32.0-36.0); MCV 95.6 fL (80-100); MPV 8.7 fL (7.6-11.3); Nucleated RBC Absolute Count 0.0 (0-0); Nucleated Red Blood Cells % 0.2 % (0-0); RBC Red Blood Cell Count 4.78 M/uL (4.33-5.43); White Blood Count 5.10 thou/uL (4.3-10.9)
[2025-02-11] MEDS ORDERED: ONDANSETRON 4 MG/2 ML VIAL ONE (02:16)
[2025-02-11] MEDS ORDERED: TAMSULOSIN 0.4 MG SR CAP ONE ×2 (02:16→02:22)
[2025-02-11 02:17] LABS: Sqamous Epithelial None Seen /HPF (None Seen); Urine Culture Reflex Order NOT NEEDED; Urine Microscopic Reflex YN ORDER UMIC; Urine WBC Clump Many /HPF (None Seen)
[2025-02-11] MEDS ORDERED: MORPHINE 4 MG/ML SYR ONE (02:17)
[2025-02-11] MEDS ORDERED: TRANEXAMIC ACID 1,000 MG/10 ML VIAL IV ONE (02:22)
[2025-02-11] MEDS ORDERED: NA CHLORIDE 0.9% 100 ML ONE (02:23)
[2025-02-11 02:32] LABS: ALT/SGPT 21.0 U/L (16-61); AST/SGOT 18.0 U/L (15-37); Albumin 3.8 g/dL (3.4-5.0); Albumin/Globulin Ratio 1.5 (1.1-1.8); Alkaline Phosphatase 140.0 U/L (45-117); Anion Gap 6.7 mEq/L (5.0-15.0); BUN Blood Urea Nitrogen 13.0 mg/dL (7-18); Globulin 2.5 g/dL (2.3-3.5); Glucose Level 110.0 mg/dL (74-106); Potassium 3.7 mEq/L (3.5-5.1)
[2025-02-11 03:02] LABS: PT Prothrombin Time 11.8 SECONDS (10-13.0); Protime INR 1.05
--- NOTE | 2025-02-11 05:57 | ER ---
Nurse's Notes [facility] Name: Alcides Cruz Age: 74 yrs Sex: Male : 1950 Arrival Date: 02/11/2025 Time: 01:36 Bed 14 Private MD: Diagnosis: Acute gross hematuria;Acute lower back pain Presentation: 02/11 01:38 Chief complaint: Patient states: WOKE UP TO USE BATHROOM AND URINATED BLOOD. BACK PAIN. ha1 01:38 Coronavirus screen: Client denies travel out of the [place] in the last 14 days. Ebola ha1 Screen: No symptoms or risks identified at this time. Initial Sepsis Screen: Does the patient meet any 2 criteria? No. Patient's initial sepsis screen is negative. Does the patient have a suspected source of infection? No. Patient's initial sepsis screen is negative. Risk Assessment: Do you want to hurt yourself or someone else? Patient reports no desire to harm self or others. Onset of symptoms was February 11, 2025. 01:38 Method Of Arrival: Ambulatory ha1 01:38 Acuity: ARTEMIO 3 ha1 Triage Assessment: 01:50 General: Appears uncomfortable, Behavior is cooperative. Pain: Complains of pain in ha1 back Pain currently is 10 out of 10 on a pain scale. Quality of pain is described as throbbing. Neuro: Level of Consciousness is awake, alert, obeys commands, Oriented to person, place, time, situation. Cardiovascular: Capillary refill < 3 seconds Patient's skin is warm and dry. Respiratory: Airway is patent Respiratory effort is even, unlabored, Respiratory pattern is regular, symmetrical. : Reports BLOOD IN THE URINE. Historical: - Allergies: 01:50 NKDA; ha1 - PMHx: 01:50 Arthritis; CAD; GERD; Hypertension; Myocardial infarction; TURP; ha1 - PSHx: 01:50 BACK SURGERY (Unknown); ha1 - Immunization history:: Adult Immunizations up to date. - Infectious Disease History:: Denies. - Social history:: Smoking status: Patient reports the use of cigarette tobacco products, smokes one pack cigarettes per day. - Family history:: not pertinent. Screenin:53 [facility] ED Fall Risk Assessment (Adult) History of falling in the last 3 months, ha1 including since admission No falls in past 3 months (0 pts) Confusion or Disorientation No (0 pts) Intoxicated or Sedated No (0 pts) Impaired Gait No (0 pts) Mobility Assist Device Used No (0 pt) Altered Elimination No (0 pt) Score/Fall Risk Level 0 - 2 = Low Risk Oriented to surroundings, Maintained a safe environment, Educated pt \T\ family on fall prevention, incl call for assistance when getting out of bed, Hourly rounding (assess needs \T\ fall precautionary measures) done. Abuse screen: Denies threats or abuse. Denies injuries from another. Nutritional screening: No deficits noted. Tuberculosis screening: No symptoms or risk factors identified. Assessment: 01:57 General: Appears in no apparent distress. uncomfortable, Behavior is appropriate for cp4 age, agitated. Pain: Complains of pain in back Pain does not radiate. Pain currently is 10 out of 10 on a pain scale. Neuro: Level of Consciousness is awake, alert, obeys commands, Oriented to person, place, time, situation. Cardiovascular: Patient's skin is warm and dry. Respiratory: Airway is patent Respiratory effort is even, unlabored. GI: No signs and/or symptoms were reported involving the gastrointestinal system. : Reports blood in urine. EENT: No signs and/or symptoms were reported regarding the EENT system. Derm: No signs and/or symptoms reported regarding the dermatologic system. Musculoskeletal: No signs and/or symptoms reported regarding the musculoskeletal system. 05:00 Reassessment: Patient appears in no apparent distress at this time. Patient and/or ss12 family updated on plan of care and expected duration. Pain level reassessed. Patient is alert, oriented x 3, equal unlabored respirations, skin warm/dry/pink. pt urine is noted to be clear yellow color . no sediments or clot noted. 06:07 Reassessment: Patient appears in no apparent distress at this time. Patient and/or ss12 family updated on plan of care and expected duration. Pain level reassessed. Patient is alert, oriented x 3, equal unlabored respirations, skin warm/dry/pink. Vital Signs: 01:38 BP 195 / 94; Pulse 68; Resp 18 S; Temp 97.6; Pulse Ox 97% on R/A; Weight 80.74 kg; ha1 Height 5 ft. 7 in. ; 02:43 BP 165 / 76; Pulse 69; Resp 18; Pulse Ox 98% ; cp4 04:00 BP 131 / 62; Pulse 49; Resp 16; Pulse Ox 95% on R/A; ss12 05:00 BP 120 / 68; Pulse 51; Resp 16; Pulse Ox 97% on R/A; ss12 05:30 BP 112 / 63; Pulse 52; Resp 16; Pulse Ox 97% on R/A; ss12 01:38 Body Mass Index 27.88 (80.74 kg, 170.18 cm) ha1 [place] Coma Score: 02/12 00:22 Eye Response: spontaneous(4). Motor Response: obeys commands(6). Verbal Response: sp4 oriented(5). Total: 15. ED Course: 02/11 01:38 Patient arrived in ED. im 01:38 Patient has correct armband on for positive identification. Bed in low position. Call ha1 light in reach. Side rails up X 1. 01:49 Lucas Roman MD is Attending Physician. sp4 01:50 Triage completed. ha1 01:57 Provided Education on: blood in urine. cp4 01:57 No provider procedures requiring assistance completed. cp4 02:02 Initial lab(s) drawn, by me, sent to lab. Urine collected: clean catch specimen, edilson cp4 blood. Inserted saline lock: 20 gauge in right antecubital area, using aseptic technique. Blood collected. Flushed with 10 mL NS. 02:09 CMP Sent. oe 02:09 CBC with Diff Sent. oe 02:26 CT Abd/Pelvis - Without Contrast In Process Unspecified. EDMS 02:42 Berenice Sherman is Primary Nurse. cp4 05:55 Kelechi Liu MD is Referral Physician. sp4 06:08 Patient plan of care discussed with the pt. ss12 06:09 IV discontinued, intact, bleeding controlled, No redness/swelling at site. Pressure ss12 dressing applied. Administered Medications: 02:03 Drug: NS 0.9% IV 1000 ml IV at 1000 ml once; to be given as a bolus over 60 minutes cp4 Route: IV; Rate: 1000 ml; Site: right antecubital; 04:08 Follow up: IV Status: Completed infusion cp4 02:21 Drug: morphine IVP or IV 4 mg IVP once over 4 mins Route: IVP; Infused Over: 4 mins; cp4 Site: right antecubital; 02:43 Follow up: Response: No adverse reaction; Pain is decreased cp4 02:21 Drug: Ondansetron IVP 4 mg IVP once; over 2 minutes Route: IVP; Site: right antecubital;cp4 02:43 Follow up: Response: No adverse reaction; Pain is decreased cp4 02:21 Drug: cloNIDine PO 0.1 mg PO once Route: PO; cp4 02:43 Follow up: Response: No adverse reaction cp4 02:21 Drug: Flomax PO 0.8 mg PO once Route: PO; cp4 02:42 Follow up: Response: No adverse reaction cp4 02:42 Drug: tranexamic acid IV 1000 mg IV at calculated rate once; IV once over 20 minutes cp4 Route: IV; Rate: calculated rate; Site: right antecubital; 04:08 Follow up: IV Status: Completed infusion cp4 Medication: 01:57 VIS not applicable for this client. cp4 Outcome: 05:56 Discharge ordered by . spSusan 06:09 Discharged to home ambulatory, ss12 06:09 Condition: stable 06:09 Discharge instructions given to patient, family, Instructed on discharge instructions, follow up and referral plans. Demonstrated understanding of instructions, follow-up care, medications, Prescriptions given X 2, 06:09 Patient left the ED. ss12 Signatures: Dispatcher [employer] EDMS Shahid Alfonso Heidy, RN RN haLucas Brower MD MD sp4 Mara Rivas Christina cp4 Arben Theodore RN RN ss12 Corrections: (The following items were deleted from the chart) 05:14 05:00 Reassessment: Patient appears in no apparent distress at this time. Patient ss12 and/or family updated on plan of care and expected duration. Pain level reassessed. Patient is alert, oriented x 3, equal unlabored respirations, skin warm/dry/pink. ss12 05:14 05:00 Reassessment: Patient appears in no apparent distress at this time. Patient ss12 and/or family updated on plan of care and expected duration. Pain level reassessed. Patient is alert, oriented x 3, equal unlabored respirations, skin warm/dry/pink. pt urine is getting clear yellow color . no sediments or clot noted. ss12
--- NOTE | 2025-02-11 05:57 | EDPHYS ---
Physician Documentation [facility] Name: Alcides Cruz Age: 74 yrs Sex: Male : 1950 Arrival Date: 02/11/2025 Time: 01:36 Bed 14 Private MD: ED Physician Lucas Roman HPI: 02/11 02:00 This 74 yrs old Male presents to ER via Ambulatory with complaints of Urinary sp4 Problem - blood. 02/12 00:22 74-year-old male presents with complaint of gross hematuria and back pain. sp4 Historical: - Allergies: 02/11 01:50 NKDA; ha1 - PMHx: 01:50 Arthritis; CAD; GERD; Hypertension; Myocardial infarction; TURP; ha1 - PSHx: 01:50 BACK SURGERY (Unknown); ha1 - Immunization history:: Adult Immunizations up to date. - Infectious Disease History:: Denies. - Social history:: Smoking status: Patient reports the use of cigarette tobacco products, smokes one pack cigarettes per day. - Family history:: not pertinent. ROS: 02/12 00:22 Constitutional: Negative for fever, chills, and weight loss, Positive for hematuria sp4 All other systems are negative, Exam: 00:22 Constitutional: This is a well developed, well nourished patient who is awake, alert, sp4 and in no acute distress. Head/Face: Normocephalic, atraumatic. Eyes: Pupils equal round and reactive to light, extra-ocular motions intact. Lids and lashes normal. Conjunctiva and sclera are not injected. Cornea within normal limits. Periorbital areas with no swelling, redness, or edema. ENT: Nares patent. No nasal discharge, no septal abnormalities noted. Tympanic membranes are normal and external auditory canals are clear. Oropharynx with no redness, swelling, or masses, exudates, or evidence of obstruction, uvula midline. Mucous membranes moist. Neck: Trachea midline, no thyromegaly or masses palpated, and no cervical lymphadenopathy. Supple, full range of motion without nuchal rigidity, or vertebral point tenderness. Chest/axilla: Normal chest wall appearance and motion. Nontender with no deformity. No lesions are appreciated. Cardiovascular: Regular rate and rhythm with a normal S1 and S2. No gallops, murmurs, or rubs. No pulse deficits. Respiratory: Lungs have equal breath sounds bilaterally, clear to auscultation and percussion. No rales, rhonchi or wheezes noted. No increased work of breathing, no retractions or nasal flaring. Abdomen/GI: Soft, with normal bowel sounds. No distension or tympany. No guarding or rebound. No evidence of tenderness throughout. Back: No spinal tenderness. No costovertebral tenderness. Skin: Warm, dry with normal turgor. Normal color with no rashes, no lesions, and no evidence of cellulitis. MS/ Extremity: Pulses equal, no cyanosis. Neurovascular intact. Full, normal range of motion. Neuro: Awake and alert, GCS 15, oriented to person, place, time, and situation. Cranial nerves II-XII grossly intact. Motor strength 5/5 in all extremities. Sensory grossly intact. Psych: Awake, alert, with orientation to person, place and time. Behavior, mood, and affect are within normal limits Vital Signs: 02/11 01:38 BP 195 / 94; Pulse 68; Resp 18 S; Temp 97.6; Pulse Ox 97% on R/A; Weight 80.74 kg; ha1 Height 5 ft. 7 in. ; 02:43 BP 165 / 76; Pulse 69; Resp 18; Pulse Ox 98% ; cp4 04:00 BP 131 / 62; Pulse 49; Resp 16; Pulse Ox 95% on R/A; ss12 05:00 BP 120 / 68; Pulse 51; Resp 16; Pulse Ox 97% on R/A; ss12 05:30 BP 112 / 63; Pulse 52; Resp 16; Pulse Ox 97% on R/A; ss12 01:38 Body Mass Index 27.88 (80.74 kg, 170.18 cm) ha1 [place] Coma Score: 02/12 00:22 Eye Response: spontaneous(4). Motor Response: obeys commands(6). Verbal Response: sp4 oriented(5). Total: 15. MDM: 02/11 05:01 Medical Screening Exam initiated sp4 05:59 ED course: COMPARISON: None. FINDINGS: Lower thorax: Lung bases are clear Abdomen: sp4 Stomach:Within normal limits Liver:No focal lesions. No intrahepatic ductal distention. Gallbladder:Nondistended Pancreas:Within normal limits Spleen:Within normal limits Right kidney:No hydronephrosis. 3 mm renal stone. Left kidney:No hydronephrosis. 2 mm renal stone. Adrenal glands:Within normal limits Vascular structures:Mild atherosclerosis. Lymph nodes:No lymphadenopathy by size criteria Pelvis: Small bowel:No significant distention. Appendix:Within normal limits Colon:No distention or acute pericolonic edema. Colonic diverticulosis. Peritoneum: No free intraperitoneal fluid or air. Bones: No acute bone findings. Chronic appearing compression deformity of the L4 vertebral body. Bladder: Unremarkable. Reproductive organs: No acute findings. Note that evaluation of the bowel and solid organs is somewhat limited due to lack of intravenous and oral contrast. IMPRESSION: 1. Bilateral nephrolithiasis. No hydronephrosis. 2. Colonic diverticulosis without diverticulitis. Electronically signed by: Juana Gaming MD 02/11/2025. 02/12 00:30 Differential diagnosis: nonspecific abdominal pain, UTI, urinary retention, sp4 prostatitis, urethritis. Data reviewed: vital signs, nurses notes, lab test result(s), radiologic studies, CT scan. Consideration of Admission/Observation Escalation of care including admission/observation considered. 02/11 01:50 Order name: CBC with Diff; Complete Time: 05:45 sp4 02/11 01:50 Order name: CMP; Complete Time: 05:45 sp4 02/11 01:50 Order name: UA Rfx Johnson Cult if indicated; Complete Time: 05:45 sp4 02/11 02:06 Order name: PT-INR; Complete Time: 05:45 sp4 02/11 02:06 Order name: CT Abd/Pelvis - Without Contrast sp4 02/11 01:50 Order name: IV Saline Lock; Complete Time: 02:03 sp4 02/11 01:50 Order name: Labs collected and sent; Complete Time: 02:03 sp4 Administered Medications: 02/11 02:03 Drug: NS 0.9% IV 1000 ml IV at 1000 ml once; to be given as a bolus over 60 minutes cp4 Route: IV; Rate: 1000 ml; Site: right antecubital; 04:08 Follow up: IV Status: Completed infusion cp4 02:21 Drug: morphine IVP or IV 4 mg IVP once over 4 mins Route: IVP; Infused Over: 4 mins; cp4 Site: right antecubital; 02:43 Follow up: Response: No adverse reaction; Pain is decreased cp4 02:21 Drug: Ondansetron IVP 4 mg IVP once; over 2 minutes Route: IVP; Site: right antecubital;cp4 02:43 Follow up: Response: No adverse reaction; Pain is decreased cp4 02:21 Drug: cloNIDine PO 0.1 mg PO once Route: PO; cp4 02:43 Follow up: Response: No adverse reaction cp4 02:21 Drug: Flomax PO 0.8 mg PO once Route: PO; cp4 02:42 Follow up: Response: No adverse reaction cp4 02:42 Drug: tranexamic acid IV 1000 mg IV at calculated rate once; IV once over 20 minutes cp4 Route: IV; Rate: calculated rate; Site: right antecubital; 04:08 Follow up: IV Status: Completed infusion cp4 Disposition: 02/12 00:30 Chart complete. sp4 Disposition Summary: 02/11/25 05:56 Discharge Ordered Problem: new sp4 Symptoms: have improved sp4 Condition: Stable sp4 Diagnosis - Acute gross hematuria sp4 - Acute lower back pain sp4 Followup: sp4 - With: Kelechi Liu MD - When: 10 - 14 days - Reason: Recheck today's complaints Discharge Instructions: - Discharge Summary Sheet sp4 - Hematuria, Adult sp4 Forms: - Patient Portal Instructions sp4 Prescriptions: - meloxicam 15 mg Oral tablet - take 1 tablet ORAL route daily PRN pain; 30 tablet; Refills: 0, Product sp4 Selection Permitted - Tramadol 50 mg Oral tablet - take 1 tablet ORAL route every 8 hours as needed; 20 tablet; Refills: 0, sp4 Product Selection Permitted Signatures: Dispatcher [employer] Faye Lee RN RN ha1 Lucas Roman MD MD sp4 Berenice Sherman cp4 Corrections: (The following items were deleted from the chart) 02/11 01:51 01:51 UA Rfx Johnson Cult if indicated+U.LAB.BRZ ordered. EDMS EDMS
[2025-02-11 06:14] VITALS: TEMP 97.6
[2025-02-11 06:18] VITALS: O2SAT 97
[2025-02-11 06:20] VITALS: BP 112/63
--- NOTE | 2025-02-11 06:41 | RAD REPORT ---
EXAM DESCRIPTION: Abdomen Pelvis Wo Contrast RadLex: CT ABDOMEN PELVIS WITHOUT IV CONTRAST CLINICAL HISTORY: 74 years Male; hematuria , eval for stone; NO CONTRAST Bed Name: 14 TECHNIQUE: CT of the abdomen and pelvis without contrast. All CT scans at this facility use dose modulation, iterative reconstruction, and/or weight based dosi ng when appropriate to reduce radiation dose to as low as reasonably achievable. COMPARISON: None. FINDINGS: Lower thorax: Lung bases are clear Abdomen: Stomach: Within normal limits Liver: No focal lesions. No intrahepatic ductal distention. Gallbladder: Nondistended Pancreas: Within normal limits Spleen: Within normal limits Right kidney: No hydronephrosis. 3 mm renal stone. Left kidney: No hydronephrosis. 2 mm renal stone. Adrenal glands: Within normal limits Vascular structures: Mild atherosclerosis. Lymph nodes: No lymphadenopathy by size criteria Pelvis: Small bowel: No significant distention. Appendix: Within normal limits Colon: No distention or acute pericolonic edema. Colonic diverticulosis. Peritoneum: No free intraperitoneal fluid or air. Bones: No acute bone findings. Chronic appearing compression deformity of the L4 vertebral body. Bladder: Unremarkable. Reproductive organs: No acute findings. Note that evaluation of the bowel and solid organs is somewhat limited due to lack of intravenous and oral contrast. IMPRESSION: 1. Bilateral nephrolithiasis. No hydronephrosis. 2. Colonic diverticulosis without diverticulitis. Electronically signed by: Juana Gaming MD 02/11/2025 05:34 AM CDT [facility] Due to temporary technical issues with the PACS/BaseTrace reporting system, reports are being carley d by the in-house radiologist without review as a courtesy to ensure prompt reporting the interpreting radiologist is fully responsible for the content of the report. Transcribed Date/Time: 02/11/2025 6:41 AM
== END 2025-02-11 06:09 | disposition home or self-care (01) ==
LOC: ER 01:36
DX: R31.0 Gross hematuria (principal); M54.50 Low back pain, unspecified; N20.0 Calculus of kidney; F17.210 Nicotine dependence, cigarettes, uncomplicated
CPT/HCPCS: 96365; 96361; 85025; 81001; 36415; 85610; 80053; 74176; 96375; 99284; J2405; J7030